=== PATIENT | male | born 1980 | race African-American/Black ===

== ENCOUNTER 2024-03-04 20:35 | Inpatient (IN) ==
--- NOTE | 2024-03-05 00:37 | Ultrasound Report ---
Exam(s): US SCROTAL EXAM: US Scrotum CLINICAL HISTORY: Reason for exam: swelling. TECHNIQUE: Real-time ultrasound of the scrotum with color Doppler and image documentation. COMPARISON: No relevant prior studies available. FINDINGS: Right testicle: Right testicle measures 3.1 x 5.4 x 2.8 cm with normal echotexture but diffuse hyperemia. No torsion. Left testicle: There is a heterogenous hypoechoic area in the previous location of the left testicle measuring 3.9 x 4.7 x 3.6 cm with no detectable Doppler blood flow. No torsion. Epididymides: Unremarkable. Scrotum: Unremarkable. No hernia or varicocele is seen. Soft tissues: There is diffuse skin thickening over the scrotum. No subcutaneous emphysema is identified. IMPRESSION: 1. Right testicle measures 3.1 x 5.4 x 2.8 cm with normal echotexture but mild diffuse hyperemia. Consider orchitis. 2. There is a heterogenous hypoechoic area in the previous location of the left testicle measuring 3.9 x 4.7 x 3.6 cm with no detectable Doppler blood flow. With a history of previous orchiectomy, consider abscess. 3. There is diffuse skin thickening over the scrotum. No subcutaneous emphysema is identified. Communications: Call Doctor Above results Electronically signed by: Presley Wood MD 03/05/24 00:36 AM
--- NOTE | 2024-03-05 01:21 | Emergency Department Note ---
History of Present Illness General Chief complaint: Testicular Pain Stated complaint: TESTICULAR PAIN Time Seen by Provider: 03/05/24 00:32 History of Present Illness This 43-year-old male prisoner whose had his left testicle removed 7 months ago secondary to torsion presents ER with increased scrotal pain and swelling for the past few days. Patient has some lower abdominal discomfort. Patient denies anal intercourse, penile pain, penile discharge, fever, chills, trauma to the area. Patient states he is in a monogamous relationship. Home Medications Medication Instructions Recorded Confirmed Type amlodipine 10 mg tablet 10 mg PO DAILY 03/05/24 03/05/24 History atorvastatin 20 mg PO DAILY 03/05/24 03/05/24 History ibuprofen 600 mg tablet 600 mg PO Q8H PRN Pain 03/05/24 03/05/24 History insulin glargine 100 unit/mL 25 unit subcut BID 03/05/24 03/05/24 History subcutaneous solution insulin regular human 100 unit/mL 1 sliding scale dose subcut 03/05/24 03/05/24 History injection solution (Novolin R USEASDIRECTD Regular U-100 Insulin) lamotrigine 100 mg tablet 100 mg PO BID 03/05/24 03/05/24 History simethicone 180 mg capsule 180 mg PO BID PRN bloating 03/05/24 03/05/24 History Past Med/Surg History Problem List (Updated 03/05/24 @ 05:11 by Roseanna Balderas PA-C) Scrotum, abscess (Acute) Social History Smoking Status: Never smoker Feels Safe at Home: Yes Review of Systems A total of 10 systems reviewed and were otherwise negative Physical Exam Vital Signs Vital Signs - 24 hr 03/04/24 20:45 03/05/24 00:28 03/05/24 00:37 Temperature 36.8 C Temperature Source Temporal Artery Scan Pulse Rate 99 H 91 H Pulse Rhythm Regular Regular Pulse Strength Normal Respiratory Rate 20 20 Respiratory Effort / Characteristics Non-Labored Spontaneous Respiratory Depth Normal Blood Pressure 204/103 H Blood Pressure Mean 136 Pulse Oximetry 97 98 Oxygen Delivery Method Room Air Room Air Sepsis Recent Fever Within 48 Hours No Sepsis New/Unexplained Change in Mental Status N/A Sepsis Action Taken by Nursing No Action Required 03/05/24 04:38 Temperature Temperature Source Pulse Rate 88 Pulse Rhythm Pulse Strength Respiratory Rate Respiratory Effort / Characteristics Respiratory Depth Blood Pressure Blood Pressure Mean Pulse Oximetry Oxygen Delivery Method Sepsis Recent Fever Within 48 Hours Sepsis New/Unexplained Change in Mental Status Sepsis Action Taken by Nursing VITALS: Vitals are noted on the nurse's note and reviewed by myself. Vital signs stable. 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 SKIN: Capillary reflex less than 2 seconds. HEENT: Normocephalic. PERRLA. EOMI. Nares patent. Mucous membranes moist. Neck is supple without nuchal rigidity. HEART: Regular rate and rhythm LUNGS: Clear to auscultation bilaterally without wheezes, rales or rhonchi. No retractions or accessory muscle use. ABDOMEN: Positive bowel sounds x 4. Normal tympanic percussion. Soft, tender to palpation lower abdomen without masses or organomegaly. Arias sign negative. No guarding or rebound tenderness. no CVA tenderness exam: Scrotum quite edematous and diffusely tender to palpation, no rashes MUSCULOSKELETAL: No gross musculoskeletal defects. NEURO: Patient was alert and oriented to person place and time. No focal neurological deficits. Course Administered Medications Discontinued Medications Doxycycline Hyclate (Doxycycline Hyclate 100 Mg Cap) 100 mg PO NOW STA Stop: 03/05/24 00:52 Last Admin: 03/05/24 01:51 Dose: 100 mg Documented By: ANGELES Ceftriaxone Sodium (Rocephin) 2,000 mg in 50 mls @ 100 mls/hr IV NOW STA Stop: 03/05/24 01:20 Last Infusion: 03/05/24 03:11 Dose: Infused Documented By: Admin: 03/05/24 01:47 Dose: 100 mls/hr Documented By: ANGELES Acetaminophen (Ofirmev) 1,000 mg in 100 mls @ 400 mls/hr IV NOW STA Stop: 03/05/24 03:12 Last Infusion: 03/05/24 04:07 Dose: Infused Documented By: Admin: 03/05/24 03:19 Dose: 400 mls/hr Documented By: WANG Sodium Chloride (Nss) 1,000 mls @ 999 mls/hr IV .Q1H1M ONE Stop: 03/05/24 03:58 Last Infusion: 03/05/24 04:23 Dose: Infused Documented By: JOSE ANGEL Admin: 03/05/24 03:18 Dose: 999 mls/hr Documented By: HAM Ioversol (Optiray 320 100ml) 94 ml IV ONCE ONE Stop: 03/05/24 02:24 Last Admin: 03/05/24 02:23 Dose: 94 ml Documented By: MONICA Medical Decision Making Medical Records Attestation: I reviewed the patient's medical records. Home Medications Current Medication List: was personally reviewed by ri Laboratory Data Attestation: I reviewed the patient's lab results. 03/05/24 01:04 03/05/24 01:04 Lab Results 03/04/24 03/05/24 Range/Units 20:49 01:04 WBC 8.27 (4.8-10.8) K/ul RBC 5.10 (4.70-6.10) M/uL Hgb 13.6 L (14.0-18.0) g/dl Hct 42.0 (42.0-52.0) % MCV 82.4 (80.0-100.0) fL MCH 26.7 (25.0-34.0) pg MCHC 32.4 (32.0-36.0) g/dL RDW Std Deviation 38.0 (36.4-46.3) fL RDW Coeff of Alexa 12.6 (11.5-14.5) % Plt Count 205 (130-400) K/uL MPV 11.2 (9.4-12.4) fL Immature Gran % (Auto) 0.1 % Neut % (Auto) 76.2 % Lymph % (Auto) 13.9 % Sac % (Auto) 8.7 % Eos % (Auto) 1.0 % Baso % (Auto) 0.1 % Neut # (Auto) 6.30 (1.40-6.50) K/uL Lymph # (Auto) 1.15 L (1.20-3.40) K/uL Sac # (Auto) 0.72 H (0.11-0.59) K/uL Eos # (Auto) 0.08 (0.00-0.50) K/uL Baso # (Auto) 0.01 (0.00-0.20) K/uL Immature Gran # (Auto) 0.01 (0.01-0.20) K/uL Sodium 137 (136-145) mmol/L Potassium 3.8 (3.5-5.1) mmol/L Chloride 99 (98-107) mmol/L Carbon Dioxide 30 (21-32) mmol/L Anion Gap 8 (3-11) BUN 19 (6-23) mg/dl Creatinine 1.39 (0.6-1.4) mg/dl Est Cr Clr Drug Dosing 97.2 ml/min Est GFR ( Amer) 70.4 ml/min Est GFR (Non-Af Amer) 60.8 ml/min BUN/Creatinine Ratio 13.7 (10-20) Glucose 248 H (70-99(Fasting)) mg/dl POC Glucose 364 H* (70-99) mg/dl Calcium 10.0 (8.6-10.3) mg/dl Total Bilirubin 0.4 (0.2-1.0) mg/dl AST 31 (13-39) U/L ALT 33 (7-52) U/L Alkaline Phosphatase 113 H (34-104) U/L Total Protein 7.7 (6.0-8.3) gm/dl Albumin 4.4 (3.4-5.0) gm/dl Globulin 3.3 (2.5-4.0) gm/dl Albumin/Globulin Ratio 1.3 (0.9-2) Lipase 73 (11-82) U/L Imaging Data Attestation: I personally reviewed and interpreted this imaging study as follows: Radiologist's Impression: Scrotum Ultrasound 03/04/24 20:50 CR Exam(s): US SCROTAL EXAM: US Scrotum CLINICAL HISTORY: Reason for exam: swelling. TECHNIQUE: Real-time ultrasound of the scrotum with color Doppler and image documentation. COMPARISON: No relevant prior studies available. FINDINGS: Right testicle: Right testicle measures 3.1 x 5.4 x 2.8 cm with normal echotexture but diffuse hyperemia. No torsion. Left testicle: There is a heterogenous hypoechoic area in the previous location of the left testicle measuring 3.9 x 4.7 x 3.6 cm with no detectable Doppler blood flow. No torsion. Epididymides: Unremarkable. Scrotum: Unremarkable. No hernia or varicocele is seen. Soft tissues: There is diffuse skin thickening over the scrotum. No subcutaneous emphysema is identified. IMPRESSION: 1. Right testicle measures 3.1 x 5.4 x 2.8 cm with normal echotexture but mild diffuse hyperemia. Consider orchitis. 2. There is a heterogenous hypoechoic area in the previous location of the left testicle measuring 3.9 x 4.7 x 3.6 cm with no detectable Doppler blood flow. With a history of previous orchiectomy, consider abscess. 3. There is diffuse skin thickening over the scrotum. No subcutaneous emphysema is identified. Communications: Call Doctor Above results Electronically signed by: Presley Wood MD 03/05/24 00:36 AM Abdomen/Pelvis CT 03/05/24 00:37 Exam(s): CT ABDOMEN + PELVIS With Contrast IV Amt: 94 ml opti 320 EXAM: CT Abdomen and Pelvis With Intravenous Contrast CLINICAL HISTORY: lower abd pain. TECHNIQUE: Axial computed tomography images of the abdomen and pelvis with intravenous contrast. CTDI is 28.14 mGy and DLP is 359.97 mGy-cm. Automated exposure control was utilized for the study. A dose lowering technique was utilized adhering to the principles of ALARA. CONTRAST: Patient received 94 ml opti 320 of IV contrast COMPARISON: Scrotal ultrasound 03/04/2024. FINDINGS: Lung bases: Unremarkable. No mass. No consolidation. ABDOMEN: Liver: Unremarkable. No mass. Gallbladder and bile ducts: Contracted. No calcified stones. No ductal dilation. Pancreas: Unremarkable. No mass. No ductal dilation. Spleen: Unremarkable. No splenomegaly. Adrenals: Unremarkable. No mass. Kidneys and ureters: No obstructive uropathy. No obstructing renal or ureteral calculi. No hydronephrosis or hydroureter. Stomach and bowel: Fat-containing periumbilical hernia. No obstruction or ileus. Moderate stool throughout the colon. No evidence for diverticulitis. PELVIS: Appendix: No findings to suggest acute appendicitis. Bladder: Mildly distended. No mass. Reproductive: Unremarkable prostate gland. Limited evaluation scrotum demonstrates extensive scrotal wall thickening, enhancement in the hypoenhancing left testes. ABDOMEN and PELVIS: Intraperitoneal space: No free air. No free fluid. Bones/joints: No acute fracture. Bilateral femoral head and neck screws. Soft tissues: Unremarkable. Vasculature: Atherosclerotic vascular calcifications. No abdominal aortic aneurysm. Lymph nodes: Unremarkable. No enlarged lymph nodes. IMPRESSION: Fat-containing periumbilical hernia. No bowel obstruction or ileus. Moderate stool throughout the colon. Limited evaluation of the scrotum straight scrotal wall thickening and hypoenhancing left testes consistent with torsion seen on scrotal ultrasound, see scrotal ultrasound report Electronically signed by: Edgar Horn M.D. 03/05/24 03:21 AM MDM Narrative Prior records/ancillary studies reviewed. Triage Nursing notes reviewed. Additional history obtained from nursing. The patient's history was concerning for testicular swelling. Differential diagnosis: Etiologies such as torsion, mass, infection, hernia, hydrocele, epididymitis, trauma, intra-abdominal process, as well as others were entertained. Physical examination: As above ER treatment provided: Rocephin, doxycycline, IV fluids On reassessment the patient felt better. Diagnostic interpretation by me: The labs Independently Interpreted by myself revealed no worrisome leukocytosis, hyperglycemia without DKA Imaging studies: Ultrasound was reviewed and read by radiology CT was reviewed and read by radiology Consultation: A consultation was placed with the urologist, Dr. Padron. The case was discussed and diagnostics were reviewed. He recommends antibiotics and CT scan Medicine is consulted and the case discussed. Patient was admitted to the medical service. This appears to be consistent with scrotal abnormality. Patient either has an abscess or hematoma. This was reviewed with urology and recommends CAT scan for possible hernia. No inguinal hernia. Patient was started on antibiotics. Medicine was consulted and case is discussed. Patient was mated to the medical service. By the evaluation outlined above emergent etiologies such as torsion, hernia, hydrocele, trauma, intra-abdominal process, as well as others were deemed relatively unlikely. The pt informed about the findings as listed above. All questions were answered and pleased with the treatment. The chart was completed utilizing [employer] Speech voice recognition software. Grammatical errors, random word insertions, pronoun errors, and incomplete sentences are an occassional consequence of this system due to software limitations, ambient noise, and hardware issues. Any formal questions or concerns about the content, text, or information contained within the body of this dictation should be directly addressed to the physician nurse practitioner physicians assistant for clarification. Impression & Plan Scrotum, abscess Discharge Plan Visit Data Chief Complaint: Testicular Pain Stated Complaint: TESTICULAR PAIN ED Provider: Caroline Shin ED Midlevel Provider: Roseanna Balderas Discharge Problem: Scrotum, abscess Patient Disposition: Admitted As Inpatient Condition: Good Forms Stand Alone Forms: My [facility] Prescriptions Prescriptions: No Action insulin glargine 100 unit/mL Solution 25 unit SUBCUT BID simethicone 180 mg Capsule 180 mg PO BID PRN (Reason: bloating) amlodipine 10 mg Tablet 10 mg PO DAILY Novolin R Regular U100 Insulin 100 unit/mL Solution 1 sliding scale dose SUBCUT USEASDIRECTD ibuprofen 600 mg Tablet 600 mg PO Q8H PRN (Reason: Pain) lamotrigine 100 mg Tablet 100 mg PO BID atorvastatin 20 mg 20 mg PO DAILY Referrals Referrals: Freddie BEST [Primary Care Provider] -
[2024-03-05 01:27] LABS: Basophils # (auto) 0.01 K/uL (0.00-0.20); Basophils % (auto) 0.1 %; Eosinophils # (auto) 0.08 K/uL (0.00-0.50); Hemoglobin 13.6 g/dl (14.0-18.0); Immature Granulocytes # (auto) 0.01 K/uL (0.01-0.20); Immature Granulocytes % (auto) 0.1 %; Lymphocytes # (auto) 1.15 K/uL (1.20-3.40); Lymphocytes % (auto) 13.9 %; Mean Corpuscular Hemoglobin 26.7 pg (25.0-34.0); Mean Corpuscular Hgb Conc 32.4 g/dL (32.0-36.0); Mean Corpuscular Volume 82.4 fL (80.0-100.0); Mean Platelet Volume 11.2 fL (9.4-12.4); Monocytes # (auto) 0.72 K/uL (0.11-0.59); Monocytes % (auto) 8.7 %; Neutrophils % (auto) 76.2 %; Platelet Count 205 K/uL (130-400); RDW Coefficient of Variation 12.6 % (11.5-14.5); White Blood Count 8.27 K/ul (4.8-10.8)
[2024-03-05 01:40] LABS: Albumin Globulin Ratio 1.3 (0.9-2); Albumin Level 4.4 gm/dl (3.4-5.0); BUN Creatinine Ratio 13.7 (10-20); Bilirubin,Total 0.4 mg/dl (0.2-1.0); Creatinine Clr Calc Pharmacy 97.2 ml/min; Est GFR (African American) 70.4 ml/min; Est GFR (Non-African American) 60.8 ml/min; Globulin 3.3 gm/dl (2.5-4.0); Potassium 3.8 mmol/L (3.5-5.1); Total Protein 7.7 gm/dl (6.0-8.3)
[2024-03-05] MEDS: cefTRIAXone SODIUM 2,000 MG/50 ML BAG IV STA (01:47)
[2024-03-05] MEDS: DOXYCYCLINE HYCLATE 100 MG CAP PO STA (01:51)
[2024-03-05] MEDS: OPTIRAY 320 100ml IV ONE (02:23)
[2024-03-05] MEDS: SODIUM CHLORIDE 0.9% 1,000 ML IV ONE (03:18)
[2024-03-05] MEDS: ACETAMINOPHEN 1,000 MG/100 ML VIAL IV STA (03:19)
--- NOTE | 2024-03-05 03:22 | CT Scan Report ---
Exam(s): CT ABDOMEN + PELVIS With Contrast IV Amt: 94 ml opti 320 EXAM: CT Abdomen and Pelvis With Intravenous Contrast CLINICAL HISTORY: lower abd pain. TECHNIQUE: Axial computed tomography images of the abdomen and pelvis with intravenous contrast. CTDI is 28.14 mGy and DLP is 359.97 mGy-cm. Automated exposure control was utilized for the study. A dose lowering technique was utilized adhering to the principles of ALARA. CONTRAST: Patient received 94 ml opti 320 of IV contrast COMPARISON: Scrotal ultrasound 03/04/2024. FINDINGS: Lung bases: Unremarkable. No mass. No consolidation. ABDOMEN: Liver: Unremarkable. No mass. Gallbladder and bile ducts: Contracted. No calcified stones. No ductal dilation. Pancreas: Unremarkable. No mass. No ductal dilation. Spleen: Unremarkable. No splenomegaly. Adrenals: Unremarkable. No mass. Kidneys and ureters: No obstructive uropathy. No obstructing renal or ureteral calculi. No hydronephrosis or hydroureter. Stomach and bowel: Fat-containing periumbilical hernia. No obstruction or ileus. Moderate stool throughout the colon. No evidence for diverticulitis. PELVIS: Appendix: No findings to suggest acute appendicitis. Bladder: Mildly distended. No mass. Reproductive: Unremarkable prostate gland. Limited evaluation scrotum demonstrates extensive scrotal wall thickening, enhancement in the hypoenhancing left testes. ABDOMEN and PELVIS: Intraperitoneal space: No free air. No free fluid. Bones/joints: No acute fracture. Bilateral femoral head and neck screws. Soft tissues: Unremarkable. Vasculature: Atherosclerotic vascular calcifications. No abdominal aortic aneurysm. Lymph nodes: Unremarkable. No enlarged lymph nodes. IMPRESSION: Fat-containing periumbilical hernia. No bowel obstruction or ileus. Moderate stool throughout the colon. Limited evaluation of the scrotum straight scrotal wall thickening and hypoenhancing left testes consistent with torsion seen on scrotal ultrasound, see scrotal ultrasound report Electronically signed by: Edgar Horn M.D. 03/05/24 03:21 AM
--- NOTE | 2024-03-05 05:26 | History & Physical Report ---
Date of Service March 05, 2024 Assessment & Plan (1) Scrotum, abscess: Plan: 43-year-old male with past medical history significant for diabetes, hypertension, hyperlipidemia, hydrocele,seizures, osteomyelitis per patient comes from group home because of the left scrotal pain started 2- 3 days ago. Patient says the pain is very severe. Micturating okay. Initially noticed some blood in the urine. Patient states about 7 months ago he had a left orchiectomy because of testicular torsion. Denies any fever. Has right lower abdominal pain. Constipated. Denies any blood in the stools. No chest pain or shortness of. No nausea. No headache. No runny nose or sore throat. No cough. . Currently hemodynamics are okay. Patient states has been in group home for last 7 months. No sexual activity since been in the group home. Scrotal pain History of left orchiectomy for testicular torsion Scrotum ultrasound possible right testicle orchitis. Possible left scrotal abscess Urology notified by ER N.p.o. IV fluids IV Dilaudid as needed IV Zosyn and Doxy Urology consult Hypertension Elevated Continue home amlodipine IV labetalol as needed Diabetes Will cut back on long-acting insulin to 12 units twice daily as patient currently n.p.o. Sliding scale Will follow blood sugars and HbA1c levels Hyperlipidemia On statin History of seizures On Lamictal DVT prophylaxis SCDs for now Disposition Med/telemetry Full code History of Present Illness Chief Complaint: Scrotal pain Primary Care Provider: NASIR Frazier 43-year-old male with past medical history significant for diabetes, hypertension, hyperlipidemia, hydrocele,seizures, osteomyelitis per patient comes from group home because of the left scrotal pain started 2- 3 days ago. Patient says the pain is very severe. Micturating okay. Initially noticed some blood in the urine. Patient states about 7 months ago he had a left orchiectomy because of testicular torsion. Denies any fever. Has right lower abdominal pain. Constipated. Denies any blood in the stools. No chest pain or shortness of. No nausea. No headache. No runny nose or sore throat. No cough. . Currently hemodynamics are okay. Patient states has been in group home for last 7 months. No sexual activity since been in the group home. Past medical history. As mentioned above Past surgical history. Left orchectomy. Bilateral foot foot surgery for osteomyelitis. Social social history. Used to smoke 6 to 7 cigarettes daily for 14 years and last smoking was 7 months ago. Used to drink alcohol heavily but last drink was 7 months ago. Patient used to smoked marijuana once in a while. Family history. Significant for diabetes, cancer, CHF Allergies Allergy/AdvReac Type Severity Reaction Status Date / Time No Known Allergies Allergy Verified 03/05/24 08:51 Home Medications Medication Instructions Recorded Confirmed Type amlodipine 10 mg tablet 10 mg PO DAILY 03/05/24 03/05/24 History atorvastatin 20 mg PO DAILY 03/05/24 03/05/24 History ibuprofen 600 mg tablet 600 mg PO Q8H PRN Pain 03/05/24 03/05/24 History insulin glargine 100 unit/mL 25 unit subcut BID 03/05/24 03/05/24 History subcutaneous solution insulin regular human 100 unit/mL 1 sliding scale dose subcut 03/05/24 03/05/24 History injection solution (Novolin R USEASDIRECTD Regular U-100 Insulin) lamotrigine 100 mg tablet 100 mg PO BID 03/05/24 03/05/24 History simethicone 180 mg capsule 180 mg PO BID PRN bloating 03/05/24 03/05/24 History Past Med/Surg History Problem List (Updated 03/05/24 @ 05:11 by Roseanna Balderas PA-C) Scrotum, abscess (Acute) Social History Smoking Status: Never smoker Feels Safe at Home: Yes Review of Systems Review of Systems: All systems reviewed & are unremarkable except as noted in HPI & below Physical Exam Physical Exam: General- Not in acute distress Head- atraumatic Eyes- PERRL. ENT- oropharynx clear Neck- supple, no JVD. Lungs- clear to auscultation no wheezing or crackles Heart- regular rate and rhythm; no murmur, no gallop. Abdomen- normal bowel sounds, soft, nontender, no distension Extremities- no pretibial edema, no erythema seen Neuro- alert, oriented PERRL, no facial palsy; no dysarthria; Scrotal swelling with mild erythema seen. Results & Data Results & Data Vital Signs (Past 12 Hours) Vital Signs Temp Pulse Resp BP Pulse Ox O2 Del Method 03/05/24 04:38 88 03/05/24 00:37 20 98 Room Air 03/05/24 00:28 91 H 03/04/24 20:45 36.8 C 99 H 20 204/103 H 97 Room Air Diagnostic Findings Laboratory Results WBC 8.27 K/ul (4.8-10.8) 03/05/24 01:04 RBC 5.10 M/uL (4.70-6.10) 03/05/24 01:04 Hgb 13.6 g/dl (14.0-18.0) L 03/05/24 01:04 Hct 42.0 % (42.0-52.0) 03/05/24 01:04 MCV 82.4 fL (80.0-100.0) 03/05/24 01:04 MCH 26.7 pg (25.0-34.0) 03/05/24 01:04 MCHC 32.4 g/dL (32.0-36.0) 03/05/24 01:04 RDW Std Deviation 38.0 fL (36.4-46.3) 03/05/24 01:04 RDW Coeff of Alexa 12.6 % (11.5-14.5) 03/05/24 01:04 Plt Count 205 K/uL (130-400) 03/05/24 01:04 MPV 11.2 fL (9.4-12.4) 03/05/24 01:04 Immature Gran % (Auto) 0.1 % 03/05/24 01:04 Neut % (Auto) 76.2 % 03/05/24 01:04 Lymph % (Auto) 13.9 % 03/05/24 01:04 [place] % (Auto) 8.7 % 03/05/24 01:04 Eos % (Auto) 1.0 % 03/05/24 01:04 Baso % (Auto) 0.1 % 03/05/24 01:04 Neut # (Auto) 6.30 K/uL (1.40-6.50) 03/05/24 01:04 Lymph # (Auto) 1.15 K/uL (1.20-3.40) L 03/05/24 01:04 [place] # (Auto) 0.72 K/uL (0.11-0.59) H 03/05/24 01:04 Eos # (Auto) 0.08 K/uL (0.00-0.50) 03/05/24 01:04 Baso # (Auto) 0.01 K/uL (0.00-0.20) 03/05/24 01:04 Immature Gran # (Auto) 0.01 K/uL (0.01-0.20) 03/05/24 01:04 Sodium 137 mmol/L (136-145) 03/05/24 01:04 Potassium 3.8 mmol/L (3.5-5.1) 03/05/24 01:04 Chloride 99 mmol/L (98-107) 03/05/24 01:04 Carbon Dioxide 30 mmol/L (21-32) 03/05/24 01:04 Anion Gap 8 (3-11) 03/05/24 01:04 BUN 19 mg/dl (6-23) 03/05/24 01:04 Creatinine 1.39 mg/dl (0.6-1.4) 03/05/24 01:04 Est Cr Clr Drug Dosing 97.2 ml/min 03/05/24 01:04 Est GFR ( Amer) 70.4 ml/min 03/05/24 01:04 Est GFR (Non-Af Amer) 60.8 ml/min 03/05/24 01:04 BUN/Creatinine Ratio 13.7 (10-20) 03/05/24 01:04 Glucose 248 mg/dl (70-99(Fasting)) H 03/05/24 01:04 POC Glucose 364 mg/dl (70-99) H* 03/04/24 20:49 Calcium 10.0 mg/dl (8.6-10.3) 03/05/24 01:04 Total Bilirubin 0.4 mg/dl (0.2-1.0) 03/05/24 01:04 AST 31 U/L (13-39) 03/05/24 01:04 ALT 33 U/L (7-52) 03/05/24 01:04 Alkaline Phosphatase 113 U/L (34-104) H 03/05/24 01:04 Total Protein 7.7 gm/dl (6.0-8.3) 03/05/24 01:04 Albumin 4.4 gm/dl (3.4-5.0) 03/05/24 01:04 Globulin 3.3 gm/dl (2.5-4.0) 03/05/24 01:04 Albumin/Globulin Ratio 1.3 (0.9-2) 03/05/24 01:04 Lipase 73 U/L (11-82) 03/05/24 01:04 Impressions Scrotum Ultrasound 03/04/24 20:50 CR Exam(s): US SCROTAL EXAM: US Scrotum CLINICAL HISTORY: Reason for exam: swelling. TECHNIQUE: Real-time ultrasound of the scrotum with color Doppler and image documentation. COMPARISON: No relevant prior studies available. FINDINGS: Right testicle: Right testicle measures 3.1 x 5.4 x 2.8 cm with normal echotexture but diffuse hyperemia. No torsion. Left testicle: There is a heterogenous hypoechoic area in the previous location of the left testicle measuring 3.9 x 4.7 x 3.6 cm with no detectable Doppler blood flow. No torsion. Epididymides: Unremarkable. Scrotum: Unremarkable. No hernia or varicocele is seen. Soft tissues: There is diffuse skin thickening over the scrotum. No subcutaneous emphysema is identified. IMPRESSION: 1. Right testicle measures 3.1 x 5.4 x 2.8 cm with normal echotexture but mild diffuse hyperemia. Consider orchitis. 2. There is a heterogenous hypoechoic area in the previous location of the left testicle measuring 3.9 x 4.7 x 3.6 cm with no detectable Doppler blood flow. With a history of previous orchiectomy, consider abscess. 3. There is diffuse skin thickening over the scrotum. No subcutaneous emphysema is identified. Communications: Call Doctor Above results Electronically signed by: Presley Wood MD 03/05/24 00:36 AM Abdomen/Pelvis CT 03/05/24 00:37 Exam(s): CT ABDOMEN + PELVIS With Contrast IV Amt: 94 ml opti 320 EXAM: CT Abdomen and Pelvis With Intravenous Contrast CLINICAL HISTORY: lower abd pain. TECHNIQUE: Axial computed tomography images of the abdomen and pelvis with intravenous contrast. CTDI is 28.14 mGy and DLP is 359.97 mGy-cm. Automated exposure control was utilized for the study. A dose lowering technique was utilized adhering to the principles of ALARA. CONTRAST: Patient received 94 ml opti 320 of IV contrast COMPARISON: Scrotal ultrasound 03/04/2024. FINDINGS: Lung bases: Unremarkable. No mass. No consolidation. ABDOMEN: Liver: Unremarkable. No mass. Gallbladder and bile ducts: Contracted. No calcified stones. No ductal dilation. Pancreas: Unremarkable. No mass. No ductal dilation. Spleen: Unremarkable. No splenomegaly. Adrenals: Unremarkable. No mass. Kidneys and ureters: No obstructive uropathy. No obstructing renal or ureteral calculi. No hydronephrosis or hydroureter. Stomach and bowel: Fat-containing periumbilical hernia. No obstruction or ileus. Moderate stool throughout the colon. No evidence for diverticulitis. PELVIS: Appendix: No findings to suggest acute appendicitis. Bladder: Mildly distended. No mass. Reproductive: Unremarkable prostate gland. Limited evaluation scrotum demonstrates extensive scrotal wall thickening, enhancement in the hypoenhancing left testes. ABDOMEN and PELVIS: Intraperitoneal space: No free air. No free fluid. Bones/joints: No acute fracture. Bilateral femoral head and neck screws. Soft tissues: Unremarkable. Vasculature: Atherosclerotic vascular calcifications. No abdominal aortic aneurysm. Lymph nodes: Unremarkable. No enlarged lymph nodes. IMPRESSION: Fat-containing periumbilical hernia. No bowel obstruction or ileus. Moderate stool throughout the colon. Limited evaluation of the scrotum straight scrotal wall thickening and hypoenhancing left testes consistent with torsion seen on scrotal ultrasound, see scrotal ultrasound report Electronically signed by: Edgar Horn M.D. 03/05/24 03:21 AM Code Status & VTE Plan VTE Prophylaxis Plan VTE Prophylaxis will be ordered: Yes
[2024-03-05] MEDS ORDERED: LABETALOL HCL IV 5 MG/ML 20ML IV PRN (05:58)
[2024-03-05] MEDS ORDERED: NITROGLYCERIN SL 0.4 MG/TAB TAB SL PRN (05:58)
[2024-03-05] MEDS ORDERED: DEXTROSE 50% 50 ML SYRINGE IV PRN (05:58)
[2024-03-05] MEDS ORDERED: POLYETHYLENE (MIRALAX) 17 GM PACK PO PRN (05:58)
[2024-03-05] MEDS ORDERED: GLUCOSE 40% GEL 15 GM TUBE PO PRN (05:58)
[2024-03-05] MEDS ORDERED: GLUCOSE 10 TAB/TUBE PO PRN (05:58)
[2024-03-05] MEDS ORDERED: GLUCAGON FOR INJ 1 MG VIAL SQ PRN (05:58)
[2024-03-05] MEDS ORDERED: CARBOHYDRATES FOR HYPOGLYCEMIA PO PRN (05:58)
--- OUTSIDE RECORDS SUMMARY | 2024-03-05 05:59 | External Medical Summary | Summary of Care ---
Author Name Unknown Organization [facility] Address [address] [place] [address] Phone [phone] Care Team Providers Care Motor Vehicle Inspector Name Role Phone Junior Lindsay MD Primary Care Provider [phone]- [phone] Encounter Details Date Type Department Care Team (Latest Contact Info) Description 07/27/2023 7:55 PM EST - 07/27/2023 11:59 PM EST Hospital Encounter Radiology Film File [address] [place] [address] Discharge Disposition: Home - Self Care Allergies No known active allergiesdocumented as of this encounter (statuses as of 12/24/2023) Medications Medication Sig Dispensed Refills Start Date End Date Status HUMALOG KWIKPEN 100 UNIT/ML SOPN inject 10 units with LUNCH AND SUPPER - MAY USE 10 UNITS AT BREAK... (REFER TO PRESCRIPTION NOTES). 1 Pre-filled Pen Syringe Dosing Unit 2 08/31/2017 Active insulin glargine (LANTUS SOLOSTAR) 100 UNIT/ML SOPNIndications:T ype 2 diabetes mellitus with hemoglobin A1c goal of less than 7.0% ([facility]) Inject 30 units once daily at night 5 Pre-filled Pen Syringe Dosing Unit 2 08/31/2017 Active Insulin Pen Needle 32G X 4 MM Use with insulin pens up to 5 times a day if needed 150 Each 5 08/31/2017 Active naproxen (NAPROSYN) 375 MG TabletIndications :Acute pain of right knee Take 1 tablet by mouth twice a day with food as needed for pain. Do not take ibuprofen concurrently. 60 Tab 5 08/31/2017 Active Blood Glucose Monitoring Suppl (ACCU-CHEK GUIDE) w/Device KIT Use to check blood sugars up to 4 times a day or as directed. 1 Kit 1 09/01/2017 Active Glucose Blood (ACCU-CHEK GUIDE) STRP Use to check blood sugars up to 4 times a day or as directed. 100 Strip 11 09/01/2017 Active Lancets MISC For use with Accu-Chek Guide glucometer. Use to check blood sugars up to 4 times a day or as directed. 100 Each 11 09/01/2017 Active Continuation of patient use of medical marijuana is approved Formulation: Dispensary Name: Dispensary Phone Number: Active FreeStyle Sherley 14 Day Sensor 06/24/2021 Active lamoTRIgine 100 MG Oral Tablet (LaMICtal) Take 1 Tablet by mouth in the morning and 1 Tablet before bedtime. 09/10/2021 Active Sildenafil Citrate 50 MG Oral Tablet Take 1 to 2 tablets as discussed daily as needed 08/08/2021 Active Lisinopril 2.5 MG Oral Tablet (Prinivil) Take 1 Tablet by mouth in the morning. Active Atorvastatin Calcium 20 MG Oral Tablet (Lipitor) Take 1 Tablet by mouth in the morning. 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 Patient did sign medication use agreement same day as tox screen given. 07/27/14: Urine drug screen with THC positive. Breech of med usage agreement. Do not give narcotics 06/04/2012 Overview: Failed urine drug screen 02/04/2012 - positive for Cannabinoids. Does have medication use agreement that is signed and scanned in chart 02/04/12, which was initiated same day as tox screen done. 07/27/14: Urine drug screen with THC positive. Second Breech of med use agreement. MEDICATION USE AGREEMENT 02/04/2012 Overview: FYI: At appointment 02/04/12 - patient seen for sinus issues but also wanted refill of vicodin. Had been out for 3 days. Was prescribed #40 Vicodin 01/05/12 to take 1 or 2 per day. Tox screen without hydrocodone on 02/04/12 but positive cannabinoids. Dyslipidemia, goal LDL below 100 07/25/2011 Dermatophytosis of nail 05/20/2011 Diabetic polyneuropathy 01/21/2011 Overview: ICD-10 update of inactive term Type 2 diabetes mellitus wit h hemoglobin A1c goal of less than 7.0% 01/08/2011 Overview: ICD-10 update of inactive term Abdominal pain 01/08/2011 Umbilical hernia 01/08/2011 Epileptic seizure 01/08/2011 SLIPPED [id number] >> Bilat, post surg 01/08/2011 documented as of this encounter (statuses as of 12/24/2023) Immunizations Name Administration Dates Next Due Hepatitis B, 20+ yrs 04/11/2014,11/08/2013,10/04 Pneumococcal Polysaccharide PPV23 (Pneumovax) 03/21/2011 Seasonal Influenza, Split, I IV3, With Preserve, Inj 07/15/2012,03/21/2011 TDAP, Age 7 and older, IM (Adacel) 03/21/2011 documented as of this encounter Social History Tobacco Use Types Packs/Day Years Used Date Smoking Tobacco: Every Day Cigarettes 0.3 10 Smokeless Tobacco: Never Comments:2-3 cigs per week. Alcohol Use Standard Drinks/Week Comments No 0 (1 standard drink = 0.6 oz pur e alcohol) social Utilities Answer Date Recorded Do you have trouble paying y our heating, water, or electric bill? (Adult - for ages 18 years and over) Not on file 12/08/2023 Is your family able to pay t he heat, water, or electric bill? (Household - for ages 0-17 years) Not on file 12/08/2023 Does your family have access to good internet? (Household - for ages 0-17 years) Not on file 12/08/2023 Social Connections Answer Date Recorded How often do you feel lonely or isolated from those around you? (Adult - for ages 18 years and over) Not on file 12/08/2023 Sex and Gender Information Value Date Recorded Sex Assigned at Not on file Gender Identity Not on file Sexual Orientation Not on file Job Start Date Occupation Industry Not on file Not on file Not on file documented as of this encounter Plan of Treatment Health Maintenance Due Date Last Done Comments DISCUSS TOBACCO CESSATION (REFER TO SMARTSET #9722) 1978 Hepatitis C Screening 1996 Pneumococcal Vaccine: Pediatrics (0 to 5 Years) and At-Risk Patients (6 to 64 Years) (2 of 2 - PCV) 03/21/2012 03/21/2011 Diabetic Foot Exam 10/04/2014 10/04/2013, 0 08/19/2012, 11/05/2011, Additional history exists Albumin/Creatinine Ratio 08/05/2017 08/05/2016, 12/20 Depression Screening 02/26/2018 02/26/2017 DTaP,Tdap,and Td Vaccines (2 - Td or Tdap) 03/21/2021 03/21/2011 COVID-19 Vaccine ( - season) 2023 Diabetic Eye Exam 09/16/2023 09/15/2022, , 10/11/2013, Additional history exists Cologuard 10/15/2023 Colonoscopy 10/15/2023 Colorectal Cancer Screening 10/15/2023 Fecal Occult Blood Test 10/15/2023 Sigmoidoscopy 10/15/2023 HbA1c 11/13/2023 05/15/2023, 06/09/2022, 06/26/2022, Additional history exists Influenza Vaccine (FLU shot) (#1) 2024 07/15/2012, 03/21/2011 GFR 08/31/2024 09/01/2023, 07/23, 08/02/2023, Additional history exists Lipid Panel 08/31/2028 09/01/2023, 04/22, 07/28/2016, Additional history exists Hepatitis B Vaccine Completed 04/11/2014, 11/08/2013, 10/04/2013 HPV (Gardasil) Vaccine Aged Out No lo nger eligible based on patient's age to complete this topic MENINGOCOCCAL (MENACTRA/MENVEO) Aged Out No longer eligible based on patient's age to complete this topic documented as of this encounter Medical Devices Not on filedocumented as of this encounter Procedures Procedure Name Priority Date/Time Associated Diagnosis Comments RADIOLOGY EXAM - US (IMAGES ONLY, NO REPORT) Routine 07/27/2023 7:55 PM EST documented in this encounter Results * RADIOLOGY EXAM - US (IMAGES ONLY, NO REPORT) (07/27/2023 7:55 PM EST) 07/27/2023 7:51 PM EST Narrative Scheduling, Silent - 12/23/2023 11:09 AM EDT This is an imaging study not interpreted or resulted by a [facility] or [employer] contracted radiologist. Yannick Nash MD RAD ULTRASOUND documented in this encounter Care Teams Motor Vehicle Inspector Relationship Specialty Start Date End Date Junior Lindsay MD [address] [place] [address] PCP - General Family Medicine 02/14/21 documented as of this encounter
--- OUTSIDE RECORDS SUMMARY | 2024-03-05 05:59 | External Medical Summary | Summary of Care ---
Author Name Unknown Organization [facility] Address [address] [place] [address] Phone [phone] Care Team Providers Care Superintendent Circus Name Role Phone Junior Lindsay MD Primary Care Provider [phone]- [phone] Encounter Details Date Type Department Care Team (Latest Contact Info) Description 07/31/2023 8:45 PM EST - 07/31/2023 11:59 PM EST Hospital Encounter Radiology Film File [address] [place], [place] [id number] Discharge Disposition: Home - Self Care Allergies [...] hemoglobin A1c goal of less than 7.0% ([facility]) Inject 30 units once daily at [...] Umbilical hernia 01/08/2011 Epileptic seizure 01/08/2011 SLIPPED [id number] >> Bilat, post surg 01/08/2011 documented as [...] Comments DISCUSS TOBACCO CESSATION (REFER TO SMARTSET #3925) 1978 Hepatitis C Screening 1996 Pneumococcal Vaccine: [...] - US (IMAGES ONLY, NO REPORT) Routine 07/31/2023 8:45 PM EST documented in this encounter Results * RADIOLOGY EXAM - US (IMAGES ONLY, NO REPORT) (07/31/2023 8:45 PM EST) 07/31/2023 8:41 PM EST Narrative Scheduling, Silent - 12/23/2023 11:13 AM EDT This is an imaging study not interpreted or resulted by a [facility] or [employer] contracted radiologist. Yannick Nash MD RAD ULTRASOUND documented in this encounter Care Teams Superintendent Circus Relationship Specialty Start Date End Date Junior Lindsay MD [address] [place] [address] PCP - General Family Medicine 02/14/21 documented as of this encounter
--- OUTSIDE RECORDS SUMMARY | 2024-03-05 05:59 | External Medical Summary | Summary of Care ---
Author Name Unknown Organization [facility] Address [address] [place] [address] Phone [phone] Care Team Providers Care Tube Room Cashier Name Role Phone Junior Lindsay MD Primary Care Provider [phone] Encounter Details Date Type Department Care Team (Late st Contact Info) Description 07/31/2023 Orders Only Unspecified Department Yannick Nash MD [address] [place] [phone] Allergies No known active allergiesdocumented as of this encounter (statuses as of 12/23/2023) Medications Medication Sig Dispensed Refills Start Date End Date Status HUMALOG KWIKPEN 100 UNIT/ML SOPN inject 10 units with LUNCH AND SUPPER - MAY USE 10 UNITS AT BREAK... (REFER TO PRESCRIPTION NOTES). 1 Pre-filled Pen Syringe Dosing Unit 2 08/31/2017 Active insulin glargine (LANTUS SOLOSTAR) 100 UNIT/ML SOPNIndications:T ype 2 diabetes mellitus with hemoglobin A1c goal of less than 7.0% ([facility]) Inject 30 units once daily at night [...] as of this encounter (statuses as of 12/23/2023) Active Problems Problem Noted Date Diagnosed Date [...] Umbilical hernia 01/08/2011 Epileptic seizure 01/08/2011 SLIPPED [id number] >> Bilat, post surg 01/08/2011 documented as of this encounter (statuses as of 12/23/2023) Immunizations Name Administration Dates Next Due Hepatitis [...] Comments DISCUSS TOBACCO CESSATION (REFER TO SMARTSET #1274) 1978 Hepatitis C Screening 1996 Pneumococcal Vaccine: Pediatrics (0 to 5 Years) and At-Risk Patients (6 to 64 Years) (2 of 2 - PCV) 03/21/2012 03/21/2011 Diabetic Foot Exam 10/04/2014 10/04/2013, 0 08/19/2012, 11/05/2011, Additional history exists Albumin/Creatinine Ratio 08/05/2017 08/05/2016, 12/20 Depression Screening 02/26/2018 02/26/2017 DTaP,Tdap,and Td Vaccines (2 - Td or Tdap) 03/21/2021 03/21/2011 COVID-19 Vaccine ( - season) 2023 HbA1c 05/25/2023 05/15/2023, 06/0 09/2022, 06/26/2022, Additional history exists Diabetic Eye Exam 09/16/2023 09/15/2022, , 10/11/2013, Additional history exists Cologuard 10/15/2023 Colonoscopy 10/15/2023 Colorectal Cancer Screening 10/15/2023 Fecal Occult Blood Test 10/15/2023 Sigmoidoscopy 10/15/2023 GFR 12/14/2023 09/01/2023, 07/23, 08/02/2023, Additional history exists Influenza Vaccine (FLU shot) (Season Ended) 2024 07/15/2012, 03/21/2011 Lipid Panel 05/03/2026 09/01/2023, 04/22, 07/28/2016, Additional history exists Hepatitis [...] interpreted or resulted by a [facility] or [employer] contracted radiologist. Yannick Nash MD RAD ULTRASOUND documented in this encounter Care Teams Tube Room Cashier Relationship Specialty Start Date End Date Junior Lindsay MD [address] [place] [address] PCP - General Family Medicine 02/14/21 documented as of this encounter
--- OUTSIDE RECORDS SUMMARY | 2024-03-05 05:59 | External Medical Summary | Summary of Care ---
Author Name Unknown Organization [facility] Address [address] [place] [address] Phone [phone] Care Team Providers Care Head Filter Press Tender Name Role Phone Junior Lindsay MD Primary Care Provider [phone] Encounter Details Date Type Department Care Team (Late st Contact Info) Description 07/27/2023 Orders Only Unspecified Department Yannick Nash MD [address] [place] [phone] Allergies No known active allergiesdocumented as of [...] A1c goal of less than 7.0% ([facility]) Inject 30 units once daily at [...] Umbilical hernia 01/08/2011 Epileptic seizure 01/08/2011 SLIPPED [id number] >> Bilat, post surg 01/08/2011 documented as [...] Comments DISCUSS TOBACCO CESSATION (REFER TO SMARTSET #2977) 1978 Hepatitis C Screening 1996 Pneumococcal Vaccine: [...] Date/Time Associated Diagnosis Comments RADIOLOGY EXAM - CT (IMAGES ONLY, NO REPORT) Routine 07/27/2023 6:15 PM EST documented in this encounter Results * RADIOLOGY EXAM - CT (IMAGES ONLY, NO REPORT) (07/27/2023 6:15 PM EST) 07/27/2023 6:11 PM EST Narrative Scheduling, Silent - 12/23/2023 11:11 AM EDT This is an imaging study not interpreted or resulted by a [facility] or [employer] contracted radiologist. Yannick Nash MD RAD CT documented in this encounter Care Teams Head Filter Press Tender Relationship Specialty Start Date End Date Junior Lindsay MD [address] [place] [address] PCP - General Family Medicine 02/14/21 documented as of this encounter
--- OUTSIDE RECORDS SUMMARY | 2024-03-05 05:59 | External Medical Summary | Summary of Care ---
Author Name Unknown Organization [facility] Address [address] [place] [address] Phone [phone] Care Team Providers Care Anesthesiologist/Physician Name Role Phone Junior Lindsay MD Primary Care Provider [phone] Encounter Details Date Type Department Care Team (Late st Contact Info) Description 07/27/2023 Orders Only Unspecified Department Yannick Nash MD [address] [place] [phone] Allergies No known active allergiesdocumented as of [...] hemoglobin A1c goal of less than 7.0% ([facility]) Inject 30 units once daily at night [...] Umbilical hernia 01/08/2011 Epileptic seizure 01/08/2011 SLIPPED [id number] >> Bilat, post surg 01/08/2011 documented as [...] Comments DISCUSS TOBACCO CESSATION (REFER TO SMARTSET #0898) 1978 Hepatitis C Screening 1996 Pneumococcal Vaccine: [...] interpreted or resulted by a [facility] or [employer] contracted radiologist. Yannick Nash MD RAD ULTRASOUND documented in this encounter Care Teams Anesthesiologist/Physician Relationship Specialty Start Date End Date Junior Lindsay MD [address] [place] [address] PCP - General Family Medicine 02/14/21 documented as of this encounter
--- OUTSIDE RECORDS SUMMARY | 2024-03-05 05:59 | External Medical Summary | Summary of Care ---
Author Name Unknown Organization [facility] Address [address] [place] [address] Phone [phone] Care Team Providers Care Sales Professional Bilingual Name Role Phone Junior Lindsay MD Primary Care Provider [phone] Encounter Details Date Type Department Care Team (Latest Contact Info) Description 07/27/2023 6:15 PM EST - 07/27/2023 7:54 PM EST Hospital Encounter Radiology Film File [address] [place] [address] Discharge Disposition: Home - Self [...] A1c goal of less than 7.0% ([facility]) Inject 30 units once daily at night [...] Umbilical hernia 01/08/2011 Epileptic seizure 01/08/2011 SLIPPED [id number] >> Bilat, post surg 01/08/2011 documented as [...] Comments DISCUSS TOBACCO CESSATION (REFER TO SMARTSET #0498) 1978 Hepatitis C Screening 1996 Pneumococcal Vaccine: [...] interpreted or resulted by a [facility] or [employer] contracted radiologist. Yannick Nash MD RAD CT documented in this encounter Care Teams Sales Professional Bilingual Relationship Specialty Start Date End Date Junior Lindsay MD [address] [place] [address] PCP - General Family Medicine 02/14/21 documented as of this encounter
[2024-03-05 06:52] LABS: Basophils # (auto) 0.01 K/uL (0.00-0.20); Basophils % (auto) 0.1 %; Eosinophils % (auto) 1.3 %; Hematocrit (blood only) 36.8 % (42.0-52.0); Hemoglobin 12.2 g/dl (14.0-18.0); Immature Granulocytes # (auto) 0.03 K/uL (0.01-0.20); Immature Granulocytes % (auto) 0.4 %; Lymphocytes # (auto) 1.24 K/uL (1.20-3.40); Lymphocytes % (auto) 16.7 %; Mean Corpuscular Hemoglobin 26.9 pg (25.0-34.0); Mean Corpuscular Hgb Conc 33.2 g/dL (32.0-36.0); Mean Corpuscular Volume 81.1 fL (80.0-100.0); Mean Platelet Volume 11.6 fL (9.4-12.4); Monocytes # (auto) 0.67 K/uL (0.11-0.59); Neutrophils # (auto) 5.36 K/uL (1.40-6.50); Neutrophils % (auto) 72.5 %; Platelet Count 193 K/uL (130-400); RDW Coefficient of Variation 12.6 % (11.5-14.5); RDW Standard Deviation 37.2 fL (36.4-46.3); Red Blood Count 4.54 M/uL (4.70-6.10); White Blood Count 7.41 K/ul (4.8-10.8)
[2024-03-05 07:41] LABS: BUN Creatinine Ratio 16.2 (10-20); Calcium 9.1 mg/dl (8.6-10.3); Creatinine Clr Calc Pharmacy 121.8 ml/min; Est GFR (African American) 92.5 ml/min; Est GFR (Non-African American) 79.8 ml/min; Estimated Average Glucose 252 mg/dl; Hemoglobin A1C 10.4 % (4.5-5.6); Magnesium 1.9 mg/dl (1.7-2.4); Potassium 3.9 mmol/L (3.5-5.1)
[2024-03-05] MEDS: Patient's ALLERGY Info needs ENTERED SCH (08:52)
[2024-03-05] MEDS: SODIUM CHLORIDE 0.9% 1,000 ML IV SCH (08:52)
[2024-03-05] MEDS ORDERED: SIMETHICONE 80 MG CHEW PO PRN (09:10)
[2024-03-05] MEDS: lamoTRIgine 100 MG TAB PO SCH (09:53)
[2024-03-05] MEDS: amLODIPine BESYLATE 5 MG TAB PO SCH (09:53)
[2024-03-05] MEDS: ATORVASTATIN 20 MG TAB PO SCH (09:53)
[2024-03-05] MEDS: INSULIN HUMAN REGULAR PER UNIT 4 UNITS in SYRINGE 3.96 ML IV STA (09:54)
[2024-03-05] MEDS: LANTUS PER UNIT CHARGE SQ SCH ×2 (09:55→20:57)
[2024-03-05] MEDS: INSULIN ASPART PER UNIT CHARGE SC SCH (09:55)
[2024-03-05] MEDS: 4.5GM X1 IV ONE (09:55)
[2024-03-05] MEDS: ACETAMINOPHEN 325 MG TAB PO PRN (09:57)
[2024-03-05] MEDS: DOXYCYCLINE HYCLATE 100 MG in DEXTROSE 5% MINI-B 100 ML IV SCH (12:11)
--- NOTE | 2024-03-05 12:14 | Urology Consultation ---
Date of Consultation March 05, 2024 Assessment & Plan (1) Scrotal hematoma: (2) Scrotal edema: (3) History of orchiectomy: (4) History of torsion of testis: (5) Obesity: Plan Patient presented with significant scrotal swelling. Patient has complicated history with history of testicular torsion requiring orchiectomy. Patient developed a large hematoma after the procedure requiring drainage and more acute management. Patient is currently a resident at the correctional [facility]. He had developed sudden onset of significant swelling pain and discomfort and was very concerned about developing a new scrotal hematoma. Patient had undergone imaging with concern for possible developing abscess. Was admitted to the hospitalist team. The ER team had reached out last evening for review of the imaging findings and to discuss different options. Based on imaging it did not appear that an abscess that formed. Patient had a mild residual hematoma in the hemiscrotum however was found to have severe scrotal edema. Patient independently assessed, examined, interviewed, and evaluated. Agree with note as above. Patient's vitals and labs were all reviewed. Pertinent values in the HPI and plan section. Imaging was reviewed interpreted by myself. On assessment of imaging patient has severe scrotal edema with moderate residual hematoma in the hemiscrotum. No signs of abscess formation gas subcutaneous fluid pockets or collections or other concern for a drainable abscess. Read did state possible portion of the testis however likely was visualizing the residual hematoma being mistaken for a nonviable or necrotic testicle. Otherwise agree with read. Vitals were reviewed. Hemoglobin was 12.2. White count 7.41. Creatinine 1.11. Other labs and vitals were reviewed and in the HPI or plan section. Blood pressure was 145/96 pulse 83 respirations 20 temperature 36.8 and oxygen saturation 100% on room air. Discussed findings extensively with patient and correctional guards. Reviewed with nurse practitioner with ER last evening as well as consulting physicians/team. Patient's complicated medical and surgical history was reviewed and summarized above. Patient's surgical, medical, social, and family history were all reviewed with pertinent values as above. Discussed patient's current diagnosis as well as concerns and issues. Reviewed different options moving forward. Discussed potential risks and benefits as well as possible options and concerns. Reviewed potential surgical options and interventions. Discussed potential issues and concerns related to intervention. Risk and benefits were discussed extensively with patient and any available family. Discussed potential risks related to anesthesia. Discussed risks of bleeding infection and injury. No sign of abscess formation within the hemiscrotum findings are consistent with persistent hematoma in the hemiscrotum with severe scrotal edema. Reviewed extensively plans and options for management of scrotal edema including conservative measures ice elevation heat in the groin region and rest. Discussed possible development of abscess. If any fluctuance fevers findings of concerning issues such as fluid collections that appear to be turning into an abscess do develop would need to consider possible surgical exploration drainage and possible drain placement however at this time appears to be largely scrotal edema that is the main source of the significant scrotal swelling. Patient will likely need medications for pain control. Would recommend continuing antibiotics with the persistent hematoma to avoid development of infected hematoma/abscess. Long conversation of conservative management. Discussed scrotal support when ambulating, Scrotal elevation when sitting/laying flat, Ice (20 mins on/20 mins off) when acutely swollen or tender, Heating Pad (20 mins on/20 mins off) when sore, and avoidance of injury/protection when active. Other testicle appeared to be viable without major issue. Will plan to continue to monitor and plan for likely outpatient follow-up. Patient can either return for follow-up to our office in approximately 2 months for reevaluation or he can plan to remove follow-up with his primary team from the original orchiectomy with the torsion. Patient's complicated medical and surgical history was reviewed and summarized above all imaging was reviewed interpreted by myself all labs and vitals were reviewed. Coordinated directly with the ER physicians/clinical team for the ongoing care management the patient with recommendations for antibiotics and conservative measures and close monitoring with possibility of surgical intervention if patient develops worsening issues. History of Present Illness Attending Physician: Noemí Jacobson MD History of Present Illness New consultation for patient with severe scrotal swelling after orchiectomy from torsion. Had history of large expanding hematoma that required treatment at an outlying facility. Had the orchiectomy as well as the hematoma management at [facility]. Patient has been at the correctional institution and developed increasing issues with scrotal swelling, discomfort, and ill feelings. Patient was very concerned that he was developing another hematoma. Patient developed sudden onset of pain in the scrotum with increasing swelling and pain going down and as well as pain radiating into groin and back in waves comes and goes. Can be severe at times. Discussed and reviewed patient's family history for any history of urologic issues, torsion and other issues. Also, discussed patient's medical surgery history especially related to any history of urinary issues as well as bleeding concerns and other problems Patient had undergone urgent imaging. Found to have likely hematoma in the hemiscrotum. Had most significantly large scrotal edema with significant stranding. Had undergone CT examination which confirmed the findings. Hematoma in the scrotum was approximately 4.7 cm. Majority of the scrotal swelling appears to be coming from the edema. Due to concerns for possible developing abscess and other issues patient was placed on broad-spectrum antibiotics. Patient was admitted and is undergoing observation. Allergies Allergy/AdvReac Type Severity Reaction Status Date / Time No Known Allergies Allergy Verified 03/05/24 08:51 Home Medications Medication Instructions Recorded Confirmed Type amlodipine 10 mg tablet 10 mg PO DAILY 03/05/24 03/05/24 History atorvastatin 20 mg PO DAILY 03/05/24 03/05/24 History ibuprofen 600 mg tablet 600 mg PO Q8H PRN Pain 03/05/24 03/05/24 History insulin glargine 100 unit/mL 25 unit subcut BID 03/05/24 03/05/24 History subcutaneous solution insulin regular human 100 unit/mL 1 sliding scale dose subcut 03/05/24 03/05/24 History injection solution (Novolin R USEASDIRECTD Regular U-100 Insulin) lamotrigine 100 mg tablet 100 mg PO BID 03/05/24 03/05/24 History simethicone 180 mg capsule 180 mg PO BID PRN bloating 03/05/24 03/05/24 History Patient History Social History Smoking Status: Former smoker Hx Alcohol Use: Yes Hx Substance Use: No Preferred Language: Romansh Communication Ability: Effective 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 Restrained HEENT: Normocephalic Atraumatic. Inspection normal. Cranial Nerves 2-12 Grossly intact. Nares are clear. Neck is supple. Normal inspection of face. Normal inspection of neck. Neurologic: No deficits on inspection. Baseline for motor function and sensory. Psychologic: Normal affect. Respiratory: Nonlabored. No use of accessory muscles. No tachypnea or dyspnea. Cardiovascular: No tachycardia Skin: [place] and Dry. No rashes or visible lesions. Extremities: Moving without issues. No motor deficits on inspection Lymphatics: No edema Abdomen: Soft Non-distended. Obese no rebound or guarding. : Significant scrotal edema with moderate tenderness on deep palpation. No skin breakdown no signs of ulceration. No fluctuance Results & Data Vital Signs (Past 12 Hours) Vital Signs Temp Pulse Pulse Resp BP Pulse Ox Pulse Ox 03/05/24 10:08 36.8 C 83 20 145/96 H 100 03/05/24 07:02 77 03/05/24 06:04 82 16 164/99 H 99 03/05/24 05:58 100 03/05/24 04:38 88 03/05/24 00:37 20 98 03/05/24 00:28 91 H O2 Del Method O2 Del Method 03/05/24 10:08 Room Air 03/05/24 07:02 03/05/24 06:04 Room Air 03/05/24 05:58 Room Air 03/05/24 04:38 03/05/24 00:37 Room Air 03/05/24 00:28 PG Care Time/CCT Total # of Minutes Spent Total Time Spent with Patient: Total time spent is greater than 50% in coordination of care (as documented) at patient's floor/unit and/or counseling patient: Coding Level of Care Code 50544 IN/OBS CONSULT LVL 5,80M Diagnoses Scrotal hematoma S30.22XA Scrotal edema N50.89 History of orchiectomy Z90.79 History of torsion of testis Z87.438 Obesity E66.9
[2024-03-05] MEDS: HYDROmorphone INJ 0.5 MG/0.5 ML SYR IV PRN ×2 (12:25→16:20)
--- NOTE | 2024-03-05 14:36 | Communication Note ---
Date of Service: March 05, 2024 Patient seen and examined Reports scrotal pain and swelling started few days ago. Had left orchiectomy earlier this year for testicular torsion. This was complicated by post op hematoma that required evacuation. Denied any fever Reported an episode of hematuria which has resolved Exam notable for obese man, Enlarged scrotum, scars on left scrotum, tender Reviewed labs and CT/USS Uro evaluated and noted that an abscess had not formed. Noted residual hematoma in scrotum with severe scrotal edema No intervention recommended Continue IV antibiotics for now Elevate scrotum HbA1c is 10.4 (Patient reported last one was about 14 or so) He stated his insulin glargine was recently increased yesterday to 25U BID He stated that the facility can only do the ISS twice due to staffing. Continue insulin therapy Diet ordered. Lantus increased to 25U BID home dose WIll monitor Other plans as detailed in H/P this AM
[2024-03-05] MEDS: FUROSEMIDE 40 MG/4 ML VIAL IV ONE (16:19)
[2024-03-05] MEDS: PIPERACILLIN/TAZOBACTAM 4.5 GM/100 ML BAG IV SCH (16:39)
[2024-03-06 07:55] LABS: Hematocrit (blood only) 37.9 % (42.0-52.0); Hemoglobin 12.1 g/dl (14.0-18.0); Mean Corpuscular Hemoglobin 26.6 pg (25.0-34.0); Mean Corpuscular Hgb Conc 31.9 g/dL (32.0-36.0); Mean Corpuscular Volume 83.3 fL (80.0-100.0); Mean Platelet Volume 11.9 fL (9.4-12.4); Platelet Count 188 K/uL (130-400); RDW Coefficient of Variation 12.6 % (11.5-14.5); RDW Standard Deviation 38.5 fL (36.4-46.3); Red Blood Count 4.55 M/uL (4.70-6.10); White Blood Count 6.53 K/ul (4.8-10.8)
[2024-03-06 07:58] LABS: BUN Creatinine Ratio 15.3 (10-20); Calcium 8.7 mg/dl (8.6-10.3); Creatinine Clr Calc Pharmacy 121.8 ml/min; Est GFR (African American) 92.5 ml/min; Est GFR (Non-African American) 79.8 ml/min; Potassium 3.7 mmol/L (3.5-5.1)
--- NOTE | 2024-03-06 09:50 | Hospitalist Progress Note ---
Date of Service March 06, 2024 Assessment & Plan (1) Scrotum, abscess: Plan: 43-year-old male with past medical history significant for diabetes, hypertension, hyperlipidemia, hydrocele,seizures, osteomyelitis per patient comes from [facility] because of the left scrotal pain started 2- 3 days ago. Patient says the pain is very severe. Had some hematuria that had resolved Patient states about 7 months ago he had a left orchiectomy because of testicular torsion complicated by post op hematoma Has been in [facility] since surgery. Denied any sexual activity Scrotal pain and swelling History of left orchiectomy for testicular torsion Concern for possible scrotal abscess vs severe scrotal edema with weeping Urology on board Reviewed CT abd/P and Scrotal USS from admission Discussed with Urologist Dr Padron today He will reeval patient. Recommends getting repeat CT pelvis CT pelvis ordered Will follow up result and recs Continue IV zosyn and doxy Discussed with RN to send UA ordered Pain control Urology consult Hypertension Continue home amlodipine Poorly controlled Diabetes mellitus HbA1c is 10.4 (Patient reported last one was about 14 or so) He stated his insulin glargine was recently increased few days ago to 25U BID He stated that the facility can only do the ISS twice due to staffing. Continue insulin therapy WIll monitor Hyperlipidemia On statin History of seizures On Lamictal DVT prophylaxis SCDs for now. If no procedure, will start on pharmacologic DVT ppx Full code I spent a total of 50 minutes coordinating, documenting and providing care for this patient excluding time spent in performance of separately billed services Admission and Anticipated Discharge Date Admission Date: March 05, 2024 Subjective Patient seen and examined Reports scrotal swelling started draining yesterday and looked like a bit bloody. Still has scrotal pain Denied fever, chills Denied dysuria, freq, urgency, hematuria today Denied all complaints on ROS Physical Exam Constitutional: + well hydrated and + obese; no acute di stress Eyes: PERRL, conjunctivae normal, anicteric sclerae ENMT: external ear and nose normal, oropharynx normal Respiratory: normal respiratory effort, lungs clear to auscultation Cardiovascular: Rate/Rhythm: regular rate and regular rhythm Gastrointestinal (Abdomen): normal bowel sounds, soft, nontender, no hepatosplenomegaly Musculoskeletal: no cyanosis or clubbing, extremities motor strength 5/5 Neurologic: PERRL, EOMI, accommodation nl, no face palsy, no dysarthria Psychiatric: A+Ox3, euthymic affect Genitourinary: Significant scrotal swelling Scars on left scrotum Depends stained. No active drainage expressed at this time Results & Data Results & Data Vital Signs (Past 12 Hours) Vital Signs Temp Pulse Pulse Resp BP BP Pulse Ox 03/06/24 09:23 89 03/06/24 07:19 36.7 C 77 19 148/81 H 90 03/06/24 04:35 36.9 C 81 17 153/81 H 99 03/05/24 23:53 36.9 C 95 H 18 186/81 H 90 03/05/24 22:01 93 H O2 Del Method 03/06/24 09:23 03/06/24 07:19 Room Air 03/06/24 04:35 Room Air 03/05/24 23:53 Room Air 03/05/24 22:01 Laboratory Results Abnormal lab results 03/05/24 03/05/24 03/05/24 Range/Units 12:08 16:01 20:31 RBC (4.70-6.10) M/uL Hgb (14.0-18.0) g/dl Hct (42.0-52.0) % MCHC (32.0-36.0) g/dL Glucose (70-99(Fasting)) mg/dl POC Glucose 169 H 187 H 246 H (70-99) mg/dl 03/06/24 03/06/24 Range/Units 06:47 07:12 RBC 4.55 L (4.70-6.10) M/uL Hgb 12.1 L (14.0-18.0) g/dl Hct 37.9 L (42.0-52.0) % MCHC 31.9 L (32.0-36.0) g/dL Glucose 189 H (70-99(Fasting)) mg/dl POC Glucose 187 H (70-99) mg/dl
[2024-03-06 10:38] LABS: Appearance Urine Clear (Clear); Bacteria Urine Automated None Seen (None Seen); Bilirubin Urine Negative (Negative); Blood Urine Negative (Negative); Cast Urine Automated 0-2 /lpf (0-2); Color Urine Yellow; Epithelial Cell Urine Auto 0-2 /hpf (0-2); Glucose Urine UA Negative (Negative); Ketones Urine Trace (Negative); Leukocyte Esterase Urine Trace (Negative); Nitrite Urine Negative (Negative); Protein Urine 2+ (Negative); RBC Urine Automated 0-2 /hpf (0-2); Specific Gravity Urine 1.029 (1.000-1.030); Urobilinogen Urine Negative (Negative); WBC Urine Automated 0-5 /hpf (0-5); pH Urine 5.5 (4.5-7.5)
[2024-03-06] MEDS: OPTIRAY 320 100ml IV ONE (11:35)
[2024-03-06] MEDS: oxyCODONE HCL IR 5 MG TAB (IMMEDIATE RELEASE) PO PRN (11:44)
--- NOTE | 2024-03-06 11:56 | CT Scan Report ---
CT pelvis w/IV con only CLINICAL HISTORY: For better evaluation of scrotal swelling.R/o absces TECHNIQUE: Helical axial images of the pelvis were obtained and displayed at 5 and 1 mm intervals. Au tomated dose lowering techniques and/or adjustment according to patient size were utilized for this e xam. This exam was performed with intravenous contrast. CT DOSE: 1237.19 mGy.cm COMPARISON: Comparison is made to scrotal ultrasound 03/04/[address] abdomen pelvis 03/05/2024 FINDINGS: Bladder: Diffuse homogeneous wall thickening is seen. Reproductive organs: Marked edema of the scrotum is seen. There is hypodensity in the expected locati on of the left testis. Bowel: The appendix is normal. Lymph nodes Pelvic: Following the lymph nodes of the left measuring 12 mm. There are external iliac nodes measuri ng up to 11 mm on the left as well. Mesenteric: Unremarkable. Peritoneum: Normal Vessels: Atherosclerotic calcifications are seen. Abdominal wall: A tiny umbilical helical hernia is seen. Bones: Bilateral femoral neck screws are seen. IMPRESSION: 1. Prominent scrotal wall edema is seen. Hypodense left scrotal contents are consistent with ultraso und findings and may represent phlegmon/abscess in this patient with history of left orchiectomy. 2. Thickening of the bladder wall is nonspecific, correlation with urinalysis is recommended to excl ude UTI. ACT 112: Negative or not required by law. Electronically signed by: Lino Chris M.D. 03/06/2024 11:53 AM
--- NOTE | 2024-03-06 12:47 | Urology Progress Note ---
Date of Service March 06, 2024 Assessment & Plan (1) Scrotal hematoma: (2) Scrotal edema: (3) History of orchiectomy: (4) History of torsion of testis: (5) Obesity: (6) Wound discharge: Plan Patient presented with significant scrotal swelling. Patient has complicated h istory with history of testicular torsion requiring orchiectomy. Patient developed a large hematoma after the procedure requiring drainage and more acute management. Call last evening due to development of discharge from wound/fell drainage. Imaging that have been reviewed from yesterday and the day prior did not show abscess formation. Does have persistent likely hematoma in the hemiscrotum with severe scrotal edema. Wound care was utilized. Elevation was also utilized. Gauze was used to try to absorb the possibly purulent discharge. Patient had remained afebrile. Vitals have otherwise remained stable. Patient has had increasing issues and increasing concern especially with the development of discharge. On examination patient found to have tract in the left hemiscrotum with weeping fluid/drainage. Small amount of blood was appreciated draining from the tract. No fluctuance or severe induration or signs of expanding cellulitis however severe edema around the area. Did appear to be the likely site of the patient's drain placement from the hematoma management after the orchiectomy. With the possible purulence it was decided to further open the track and place sterile packing. Please see below for the procedure. Patient tolerated the packing placement and drainage Patient is currently incarcerated at correction[facility]. He had developed sudden onset of significant swelling pain and discomfort and was very concerned about developing a new scrotal hematoma. Discussed with hospitalist team this morning. Discussed concerns and issues especially possibility of developing abscess with persistent hematoma. Discussed the severity of the scrotal edema and possibly weeping fluid from the edematous changes in the scrotum. Did discuss need for local wound care and would recommend wound care nurse assessment for further management. A urgent/emergent CT scan was completed in order to assess for possible abscess. This was reviewed interpreted by myself. Patient does have a likely persistent hematoma with no signs of free air or gas or developing abscess. Does have severe significant scrotal edema throughout the subcutaneous tissues of the scrotum. Does not appear to be worsening or increasing. Reviewed extensively with patient. Examined today. Discussed ongoing options moving forward. Recommend continued IV antibiotics and observation. Would recommend continued conservative measures with elevation, compression, ice, and ongoing support. Would also recommend wound care assessment for ongoing discharge issues. No drainable abscess was appreciated on the CT scan. Will continue to observe if something does develop or if patient develops severe induration, cellulitis, fluctuance or other sign of developing abscess would consider possible surgical drainage at this time we will plan for continued observation. Drainage of hematoma/abscess and sterile packing Anesthetic: none Patient was prepped and draped in the standard sterile fashion after cleaning around the wound. The wound tract was first probed utilizing a cotton swab. Loculations and a fluid cavity was able to be appreciated. A sterile culture swab was then selected and the wound was further probed for deep culture. A moderate amount of what appeared to be old hematoma/possible purulent fluid was able to be drained. The swab was then sent for culture. The swab was able to enter the cavity approximately 3.5 cm deep in the hemiscrotum on the left. Utilizing additional cotton swabs the area was then further probed. Additional loculations and fluid was able to be manipulated and drained from the cavity. Patient tolerated the intervention without major issue or severe pain. Had some relief of pain with the discharge drainage. The area was then cleaned and flushed. Sterile packing was then selected. Quarter inch sterile packing was utilized. The packing was folded in half and able to be inserted using forceps into the deep portion of the cavity. Packing was then placed with the both ends out from the opening of the wound. The skin and tissue around the wound were assessed. No signs of significant erythema. No signs of induration or other issues. While probing the wound with the cotton swabs there was no obvious other fluid collections or other major abnormalities appreciated. The patient was then further cleaned. Sterile 4 x 4 gauze was placed over the packing and. Will plan to maintain packing for approximately 12 to 24 hours. Would recommend wound care assessment and plans for further evaluation in order to determine next [place] local wound management. No obvious drainable or concerning abscess cavities have been noted on the CT examination. The severity of the scrotal edema likely limited the assessment however there was no signs of free air and as the patient did experience some spontaneous drainage overnight the developing possible abscess may have been partially drained spontaneously on its own. Admission and Anticipated Discharge Date Admission Date: March 05, 2024 Subjective Patient admitted with severe scrotal edema with history of orchiectomy secondary to torsion with nonviable testicle and development of hematoma with significant drainage and infection. Patient had procedures at outlying facility. Patient is afebrile. Has been supportive care and monitoring with conservative measures, oral medications, IV medications, IV fluids, and oral intake. Patient developed discharge last evening possibly weeping from the severe edema. Was somewhat foul-smelling and concerning for possible draining abscess. Has not had severe episode or major increase in pain or major issues. Has not developed severe vomiting or other issues. Patient has remained afebrile. Has not experienced fever or chills. No severe episodes or major changes. Patient underwent CT examination today to rule out abscess formation with the known persistent hematoma and severe scrotal edema. Review of Systems Review of Systems: All systems reviewed & are unremarkable except as noted in HPI & below Physical Exam Physical Exam: General: Alert in no acute distress. Obese. Restrained HEENT: Normocephalic Atraumatic. Inspection normal. Cranial Nerves 2-12 Grossly intact. Normal inspection of face. Normal inspection of neck. Psychologic: Normal affect. Respiratory: Nonlabored. No use of accessory muscles. No tachypnea or dyspnea. Cardiovascular: No tachycardia Skin: [place] and Dry. No rashes or visible lesions. Extremities/Lymphatics: No edema Abdomen: Soft Non-distended. Obese. No rebound or guarding. : Severe scrotal edema. Tenderness Draining tract on the left hemiscrotum with mild induration and clear discharge. Wound was further opened and probed and drained and a mild to moderate amount of purulent appearing drainage and old appearing hematoma was able to be flushed and drained from the wound. Sterile quarter inch packing was then placed and 4 x 4 gauze Results & Data Vital Signs (Past 12 Hours) Vital Signs Temp Pulse Pulse Resp BP BP Pulse Ox 03/06/24 11:14 36.5 C 75 19 155/84 H 90 03/06/24 09:23 89 03/06/24 07:19 36.7 C 77 19 148/81 H 90 03/06/24 04:35 36.9 C 81 17 153/81 H 99 O2 Del Method 03/06/24 11:14 Room Air 03/06/24 09:23 03/06/24 07:19 Room Air 03/06/24 04:35 Room Air PG Care Time/CCT Total # of Minutes Spent Total Time Spent with Patient: Total time spent is greater than 50% in coordination of care (as documented) at patient's floor/unit and/or counseling patient: Coding Level of Care Code 02378 SUB INP/OBS CARE 350MIN Diagnoses Scrotal hematoma S30.22XA Scrotal edema N50.89 History of orchiectomy Z90.79 History of torsion of testis Z87.438 Obesity E66.9 Wound discharge T14.8XXA CPT Codes Drainage of Hematoma/Fluid - [id number] ([id number])
[2024-03-07 06:21] LABS: Hematocrit (blood only) 35.6 % (42.0-52.0); Hemoglobin 11.6 g/dl (14.0-18.0); Mean Corpuscular Hemoglobin 26.5 pg (25.0-34.0); Mean Corpuscular Hgb Conc 32.6 g/dL (32.0-36.0); Mean Corpuscular Volume 81.5 fL (80.0-100.0); Mean Platelet Volume 11.4 fL (9.4-12.4); Platelet Count 201 K/uL (130-400); RDW Coefficient of Variation 12.2 % (11.5-14.5); RDW Standard Deviation 36.8 fL (36.4-46.3); Red Blood Count 4.37 M/uL (4.70-6.10); White Blood Count 5.13 K/ul (4.8-10.8)
[2024-03-07 06:28] LABS: BUN Creatinine Ratio 12.5 (10-20); Calcium 8.6 mg/dl (8.6-10.3); Creatinine Clr Calc Pharmacy 130.5 ml/min; Est GFR (Non-African American) 86.3 ml/min; Potassium 3.6 mmol/L (3.5-5.1)
--- NOTE | 2024-03-07 14:37 | Urology Progress Note ---
Date of Service March 07, 2024 Assessment & Plan (1) Scrotal edema: (2) Scrotal hematoma: (3) History of torsion of testis: (4) History of orchiectomy: (5) Wound discharge: Plan 43yo/M with a history of testicular torsion requiring orchiectomy approx 7mo ago at an outside facility which was complicated by postop hematoma requiring drainage. He presented to [facility] ED 03/05/24 with significant scrotal swelling and pain. On exam he was found to have a tract in the left hemiscrotum which was likely the site of the patient's drain placement from the hematomata management after the orchiectomy. A CT Pelvis was obtained and notable for prominent scrotal wall edema and hypodense left scrotal contents which may represent phlegmon/abscess. He underwent bedside drainage of hematoma/abscess on 03/06/[address] Padron. He is afebrile with stable vitals. Labs today show no leukocytosis and normal renal function. Scrotal wound cultures pending. He is on Zosyn and Doxycycline. Exam today consistent with recent drainage of hematoma/abscess. Packing in place to left hemiscrotum. There is serosanguineous drainage on dressing covering wound. Patient reports nursing exchanged his packing/dressing early this morning. He continues to have severe scrotal edema. No areas of fluctuance appreciated on exam today. Wound care nurse consulted. Continue local wound care and packing exchanges per [facility] recommendations. Continue supportive care and antibiotic therapy. Would recommend follow-up with his primary urologist after discharge or we can arrange with our office if needed. Urology will follow. Plan reviewed with Dr. Padron. Admission and Anticipated Discharge Date Admission Date: March 05, 2024 Subjective Pt seen at bedside today Awake, resting in bed on arrival No acute distress Guards at bedside He reports an overall improvement in scrotal pain Scrotal packing remains in place - He reports nursing exchanged packing/dressing overnight/early AM Voiding without issue Denies f/c/n/v Review of Systems Constitutional: as per Subjective / HPI Gastrointestinal: as per Subjective / HPI Genitourinary: + as per Subjective / HPI Physical Exam Constitutional: + obese; no acute distress Restrained Respiratory: no respiratory distress and no labored breathing Neurologic: awake Psychiatric: Orientation: alert, oriented x 3 and cooperative Genitourinary: Severe scrotal edema. Tender on exam. Packing in place to left hemiscrotum. Mild induration. Serosanguineous drainage on dressing covering wound. No active drainage or bleeding. No areas of fluctuance or ulceration appreciated. Results & Data Vital Signs (Past 12 Hours) Vital Signs Temp Pulse Resp BP BP Pulse Ox O2 Del Method 03/07/24 11:07 36.6 C 72 8 L 131/79 90 Room Air 03/07/24 08:41 36.9 C 79 14 169/95 H Room Air 03/07/24 03:36 36.7 C 71 18 143/82 H 90 Room Air PG Care Time/CCT Total # of Minutes Spent Total Time Spent with Patient: Total time spent is greater than 50% in coordination of care (as documented) at patient's floor/unit and/or counseling patient: Coding Level of Care Code 42197 SUB INP/OBS CARE 2/35MIN Diagnoses Scrotal edema N50.89 Scrotal hematoma S30.22XA History of torsion of testis Z87.438 History of orchiectomy Z90.79 Wound discharge T14.8XXA
[2024-03-07] MEDS: DOCUSATE SODIUM/SENNA 50/8.6MG TAB PO SCH (14:45)
--- NOTE | 2024-03-07 15:42 | Hospitalist Progress Note ---
Date of Service March 07, 2024 Assessment & Plan (1) Scrotum, abscess: Plan: 43-year-old male with past medical history significant for diabetes, hypertension, hyperlipidemia, hydrocele,seizures, osteomyelitis per patient comes from [facility] because of the left scrotal pain started 2- 3 days ago. Patient says the pain is very severe. Had some hematuria that had resolved Patient states about 7 months ago he had a left orchiectomy because of testicular torsion complicated by post op hematoma Has been in [facility] since surgery. Denied any sexual activity Scrotal pain and swelling History of left orchiectomy for testicular torsion Reviewed CT abd/P and Scrotal USS from admission Had bedside drainage of hematoma/abscess on 03/06/[address] Padron Continue IV zosyn and doxy Wound care consulted Pain control Will need urology follow up outpatient Hypertension Continue home amlodipine Poorly controlled Diabetes mellitus HbA1c is 10.4 (Patient reported last one was about 14 or so) He stated his insulin glargine was recently increased few days ago to 25U BID He stated that the facility can only do the ISS twice due to staffing. Continue insulin therapy Monitor Hyperlipidemia On statin History of seizures On Lamictal DVT prophylaxis Hep sq Full code I spent a total of 40 minutes coordinating, documenting and providing care for this patient excluding time spent in performance of separately billed services Admission and Anticipated Discharge Date Admission Date: March 05, 2024 Subjective Patient seen and examined Had bedside drainage of hematoma/abscess on 03/06/[address] Padron Reports scrotal pain is better controlled Denied fever, chills Denied dysuria, freq, urgency, hematuria Reports constipation but passing flatus. No nausea, vomiting, abd pain Denied all complaints on ROS Physical Exam Constitutional: + well hydrated and + obese; no acute di stress Eyes: PERRL, conjunctivae normal, anicteric sclerae ENMT: external ear and nose normal, oropharynx normal Respiratory: normal respiratory effort, lungs clear to auscultation Cardiovascular: Rate/Rhythm: regular rate and regular rhythm Gastrointestinal (Abdomen): normal bowel sounds, soft, nontender, no hepatosplenomegaly Musculoskeletal: no cyanosis or clubbing, extremities motor strength 5/5 Neurologic: PERRL, EOMI, accommodation nl, no face palsy, no dysarthria Psychiatric: A+Ox3, euthymic affect Genitourinary: Significant scrotal swelling Draining tract in left scrotum with packing. Scars on left scrotum Results & Data Results & Data Vital Signs (Past 12 Hours) Vital Signs Temp Pulse Resp BP Pulse Ox O2 Del Method 03/07/24 11:07 36.6 C 72 8 L 131/79 90 Room Air 03/07/24 08:41 36.9 C 79 14 169/95 H Room Air Laboratory Results Abnormal lab results 03/06/24 03/06/24 03/07/24 Range/Units 16:03 20:10 05:35 RBC 4.37 L (4.70-6.10) M/uL Hgb 11.6 L (14.0-18.0) g/dl Hct 35.6 L (42.0-52.0) % Glucose 113 H (70-99(Fasting)) mg/dl POC Glucose 159 H 154 H (70-99) mg/dl 03/07/24 Range/Units 12:06 RBC (4.70-6.10) M/uL Hgb (14.0-18.0) g/dl Hct (42.0-52.0) % Glucose (70-99(Fasting)) mg/dl POC Glucose 162 H (70-99) mg/dl
[2024-03-07] MEDS: HEPARIN SOD 5,000 UNIT/0.5 ML VIAL SQ SCH (20:31)
[2024-03-08 08:05] LABS: Hematocrit (blood only) 37.7 % (42.0-52.0); Hemoglobin 12.4 g/dl (14.0-18.0); Mean Corpuscular Hemoglobin 26.4 pg (25.0-34.0); Mean Corpuscular Hgb Conc 32.9 g/dL (32.0-36.0); Mean Corpuscular Volume 80.4 fL (80.0-100.0); Platelet Count 228 K/uL (130-400); RDW Coefficient of Variation 12.4 % (11.5-14.5); RDW Standard Deviation 35.8 fL (36.4-46.3); Red Blood Count 4.69 M/uL (4.70-6.10); White Blood Count 5.08 K/ul (4.8-10.8)
[2024-03-08 08:24] LABS: BUN Creatinine Ratio 14.3 (10-20); Calcium 9.2 mg/dl (8.6-10.3); Creatinine Clr Calc Pharmacy 128.9 ml/min; Est GFR (African American) 98.9 ml/min; Est GFR (Non-African American) 85.3 ml/min; Potassium 3.9 mmol/L (3.5-5.1)
--- NOTE | 2024-03-08 09:03 | Urology Progress Note ---
Date of Service March 08, 2024 Assessment & Plan (1) Scrotal edema: (2) Scrotal hematoma: (3) History of torsion of testis: (4) History of orchiectomy: (5) Wound discharge: Plan 43yo/M with a history of testicular torsion requiring orchiectomy approx 7mo ago at an outside facility complicated by postop hematoma requiring drainage. He was admitted on 03/05/24 for scrotal swelling and pain. CT Pelvis on arrival was notable for prominent scrotal wall edema and hypodense left scrotal contents which may represent phlegmon/abscess. He underwent bedside drainage of hematoma/abscess on 03/06/[address] Padron. He is afebrile and hemodynamically stable. Labs today show no leukocytosis and normal renal function. Scrotal wound cultures prelim with pin point growthfollow cultures. He is on Zosyn and Doxycycline. Pain is adequately controlled. Exam consistent with recent drainage of hematoma/abscess. Packing in place to left hemiscrotum. There is serosanguineous drainage on dressing covering wound. Nursing exchanged his packing/dressing early yesterday morning. He continues to have severe scrotal edema. No areas of fluctuance appreciated on exam today. Wound care nurse consulted. Continue local wound care and packing exchanges per [facility] recommendations. Continue supportive care, pain management and antibiotic therapy. Recommend follow-up with his primary urologist after discharge or we can arrange with our office if needed. Urology will follow peripherally. Admission and Anticipated Discharge Date Admission Date: March 05, 2024 Subjective Pt seen at bedside this am Guards present He is awake and sitting up eating breakfast, NAD He reports overall improvement in scrotal pain Scrotal packing remains in place Packing exchanged by nursing on 03/07 Voiding without issue Denies fever or chills Review of Systems Constitutional: as per Subjective / HPI Genitourinary: + as per Subjective / HPI Physical Exam Constitutional: + obese; no acute distress Restrained Respiratory: no respiratory distress and no labored breathing Neurologic: awake Psychiatric: Orientation: alert, oriented x 3 and cooperative Genitourinary: Significant scrotal edema. Some tenderness on exam. Packing in place to left hemiscrotum. Mild induration. Serosanguineous drainage on dressing covering wound. No active drainage or bleeding. No areas of fluctuance or ulceration appreciated. Results & Data Vital Signs (Past 12 Hours) Vital Signs Temp Pulse Pulse Resp BP Pulse Ox Pulse Ox 03/08/24 07:13 36.7 C 70 19 139/71 92 03/08/24 05:00 95 03/08/24 02:35 36.8 C 69 18 126/76 92 03/07/24 23:28 76 03/07/24 23:21 03/07/24 23:12 36.6 C 76 18 158/92 H 94 O2 Del Method O2 Del Method 03/08/24 07:13 Room Air 03/08/24 05:00 Room Air 03/08/24 02:35 Room Air 03/07/24 23:28 03/07/24 23:21 Room Air 03/07/24 23:12 Room Air PG Care Time/CCT Total # of Minutes Spent Total Time Spent with Patient: Total time spent is greater than 50% in coordination of care (as documented) at patient's floor/unit and/or counseling patient: Coding Level of Care Code 51929 SUB INP/OBS CARE 25MIN Diagnoses Scrotal edema N50.89 Scrotal hematoma S30.22XA History of torsion of testis Z87.438 History of orchiectomy Z90.79 Wound discharge T14.8XXA
--- NOTE | 2024-03-08 12:06 | Hospitalist Progress Note ---
Date of Service March 08, 2024 Assessment & Plan (1) Scrotum, abscess: Plan: 43-year-old male with past medical history significant for diabetes, hypertension, hyperlipidemia, hydrocele,seizures, osteomyelitis per patient [facility] because of the left scrotal pain started 2- 3 days ago. Patient says the pain is very severe. Had some hematuria that had resolved Patient states about 7 months ago he had a left orchiectomy because of testicular torsion complicated by post op hematoma Has been in long term since surgery. Denied any sexual activity Scrotal pain and swelling History of left orchiectomy for testicular torsion Reviewed CT abd/P and Scrotal USS from admission Had bedside drainage of hematoma/abscess on 03/06/[address] Padron Currently on IV zosyn and doxy Awaiting wound care eval Pain controlled Will need urology follow up outpatient Hypertension Continue home amlodipine Poorly controlled Diabetes mellitus HbA1c is 10.4 (Patient reported last one was about 14 or so) He stated his insulin glargine was recently increased few days ago to 25U BID He stated that the facility can only do the ISS twice due to staffing. Continue insulin therapy May consider change in insulin regime to 70/30 or addition of oral antidiabetics on dc depending on what is able to be done at [facility]al facility Hyperlipidemia On statin History of seizures On Lamictal DVT prophylaxis Hep sq Full code I spent a total of 40 minutes coordinating, documenting and providing care for this patient excluding time spent in performance of separately billed services Admission and Anticipated Discharge Date Admission Date: March 05, 2024 Subjective Patient seen and examined Reports scrotal pain is well controlled No new complaints Physical Exam Constitutional: + well hydrated and + obese; no acute di stress Eyes: PERRL, conjunctivae normal, anicteric sclerae ENMT: external ear and nose normal, oropharynx normal Respiratory: normal respiratory effort, lungs clear to auscultation Cardiovascular: Rate/Rhythm: regular rate and regular rhythm Gastrointestinal (Abdomen): normal bowel sounds, soft, nontender, no hepatosplenomegaly Musculoskeletal: no cyanosis or clubbing, extremities motor strength 5/5 Neurologic: PERRL, EOMI, accommodation nl, no face palsy, no dysarthria Psychiatric: A+Ox3, euthymic affect Genitourinary: Significant scrotal swelling Draining tract in left scrotum with packing Results & Data Results & Data Vital Signs (Past 12 Hours) Vital Signs Temp Pulse Resp BP Pulse Ox Pulse Ox O2 Del Method 03/08/24 11:10 36.9 C 72 18 144/84 H 93 Room Air 03/08/24 07:13 36.7 C 70 19 139/71 92 Room Air 03/08/24 05:00 95 03/08/24 02:35 36.8 C 69 18 126/76 92 Room Air O2 Del Method 03/08/24 11:10 03/08/24 07:13 03/08/24 05:00 Room Air 03/08/24 02:35 Laboratory Results Abnormal lab results 03/07/24 03/07/24 03/08/24 Range/Units 16:15 20:30 07:12 RBC (4.70-6.10) M/uL Hgb (14.0-18.0) g/dl Hct (42.0-52.0) % RDW Std Deviation (36.4-46.3) fL POC Glucose 108 H 127 H 100 H (70-99) mg/dl 03/08/24 03/08/24 Range/Units 07:34 11:09 RBC 4.69 L (4.70-6.10) M/uL Hgb 12.4 L (14.0-18.0) g/dl Hct 37.7 L (42.0-52.0) % RDW Std Deviation 35.8 L (36.4-46.3) fL POC Glucose 144 H (70-99) mg/dl
[2024-03-09 06:40] LABS: Hematocrit (blood only) 37.5 % (42.0-52.0); Hemoglobin 12.5 g/dl (14.0-18.0); Mean Corpuscular Hemoglobin 26.9 pg (25.0-34.0); Mean Corpuscular Hgb Conc 33.3 g/dL (32.0-36.0); Mean Corpuscular Volume 80.8 fL (80.0-100.0); Mean Platelet Volume 11.1 fL (9.4-12.4); Platelet Count 240 K/uL (130-400); RDW Coefficient of Variation 12.3 % (11.5-14.5); RDW Standard Deviation 35.8 fL (36.4-46.3); Red Blood Count 4.64 M/uL (4.70-6.10); White Blood Count 4.38 K/ul (4.8-10.8)
[2024-03-09 06:43] LABS: BUN Creatinine Ratio 18.4 (10-20); Calcium 9.1 mg/dl (8.6-10.3); Creatinine Clr Calc Pharmacy 131.2 ml/min; Est GFR (African American) 101.2 ml/min; Est GFR (Non-African American) 87.3 ml/min
--- NOTE | 2024-03-09 14:59 | Hospitalist Progress Note ---
Date of Service March 09, 2024 Assessment & Plan (1) Scrotum, abscess: Plan: 43 yo M w/ PMH of diabetes, hypertension, hyperlipidemia, hydrocele, seizures, osteomyelitis comes from [facility] because of the left scrotal pain that started 2- 3 days ago [employer]. Patient says the pain was very severe. Had some hematuria that had resolved. Patient states about 7 months ago he had a left orchiectomy because of testicular torsion and was complicated by post op hematoma. Has been in detention since surgery. Denied any sexual activity. He is being managed for the following: Scrotal pain and swelling Concern for scrotal infection of hematoma/abscess History of left orchiectomy for testicular torsion Reviewed CT abd/P and Scrotal USS from admission Had bedside drainage of hematoma/abscess on 03/06/[address] Padron Currently on IV zosyn and doxy WOCN on board, pt will need wound care on dc. Scrotal cx non conclusive. ID consult, await recs Pain controlled Will need urology follow up outpatient Hypertension: Continue home amlodipine Poorly controlled Diabetes mellitus: HbA1c is 10.4 (Patient reported last one was about 14 or so) He stated his insulin glargine was recently increased few days ago to 25U BID He stated that the facility can only do the ISS twice due to staffing. Continue insulin therapy May consider change in insulin regime to 70/30, and close f/u w/ provider for ongoing diabetes care. Pt states he didn't tolerate metformin in the past. Hyperlipidemia: On statin History of seizures: On Lamictal DVT prophylaxis: Hep sq Full code Admission and Anticipated Discharge Date Admission Date: March 05, 2024 Subjective Patient seen and examined at bedside. Reports scrotal pain is well controlled. Reports eating okay and moving bowels okay. No new complaints. Physical Exam Physical Exam: General- Not in acute distress, Obese class II. Head- atraumatic Eyes- PERRL. ENT- oropharynx clear Neck- supple, no JVD. Lungs- clear to auscultation no wheezing or crackles Heart- regular rate and rhythm; no murmur, no gallop. Abdomen- normal bowel sounds, soft, nontender, no distension Extremities- no pretibial edema, no erythema seen Neuro- alert, oriented PERRL, no facial palsy; no dysarthria; Scrotal swelling. Serosanguineous drainage on dressing. tender ness improving per pt. Results & Data Results & Data Vital Signs (Past 12 Hours) Vital Signs Temp Pulse Pulse Resp BP BP Pulse Ox 03/09/24 12:15 36.6 C 68 18 135/79 94 03/09/24 07:32 36.3 C L 71 20 136/82 91 03/09/24 05:35 70 03/09/24 03:00 36.8 C 70 20 133/83 92 O2 Del Method 03/09/24 12:15 Room Air 03/09/24 07:32 Room Air 03/09/24 05:35 03/09/24 03:00 Room Air
[2024-03-10 06:53] LABS: Hematocrit (blood only) 40.5 % (42.0-52.0); Hemoglobin 12.9 g/dl (14.0-18.0); Mean Corpuscular Hemoglobin 26.3 pg (25.0-34.0); Mean Corpuscular Hgb Conc 31.9 g/dL (32.0-36.0); Mean Corpuscular Volume 82.7 fL (80.0-100.0); Mean Platelet Volume 10.5 fL (9.4-12.4); Platelet Count 262 K/uL (130-400); RDW Coefficient of Variation 12.7 % (11.5-14.5); RDW Standard Deviation 38.4 fL (36.4-46.3); White Blood Count 4.91 K/ul (4.8-10.8)
[2024-03-10 07:04] LABS: BUN Creatinine Ratio 17.1 (10-20); Calcium 9.5 mg/dl (8.6-10.3); Creatinine Clr Calc Pharmacy 127.9 ml/min; Est GFR (African American) 98.9 ml/min; Est GFR (Non-African American) 85.3 ml/min; Magnesium 1.9 mg/dl (1.7-2.4)
[2024-03-10] MEDS: ADVANCED PROBIOTIC 625 MG CAPSULE PO SCH (08:03)
--- NOTE | 2024-03-10 15:57 | Hospitalist Progress Note ---
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 Patient says the pain was very severe. Had some hematuria that had resolved. Patient states about 7 months ago he had a left orchiectomy because of testicular torsion and was complicated by post op hematoma. Has been in [facility] since surgery. Denied any sexual activity. He is being managed for the following: Scrotal pain and swelling Concern for scrotal infection of hematoma/abscess History of left orchiectomy for testicular torsion Reviewed CT abd/P and Scrotal USS from admission Had bedside drainage of hematoma/abscess on 03/06/[address] Padron Currently on IV zosyn and doxy WOCN on board, pt will need wound care on dc. Scrotal cx non conclusive. ID consult, await recs Pain controlled Will need urology follow up outpatient Hypertension: Continue home amlodipine Poorly controlled Diabetes mellitus: HbA1c is 10.4 (Patient reported last one was about 14 or so) He stated his insulin glargine was recently increased few days ago to 25U BID He stated that the facility can only do the ISS twice due to staffing. Continue insulin therapy May consider change in insulin regime to 70/30, and close f/u w/ provider for ongoing diabetes care. Pt states he didn't tolerate metformin in the past. Hyperlipidemia: On statin History of seizures: On Lamictal DVT prophylaxis: Hep sq Full code Admission and Anticipated Discharge Date Admission Date: March 05, 2024 Subjective Patient seen and examined at bedside. Reports scrotal pain is well controlled. Reports eating okay and moving bowels okay. No new complaints. Physical Exam Physical Exam: General- Not in acute distress, Obese class II. Head- atraumatic Eyes- PERRL. ENT- oropharynx clear Neck- supple, no JVD. Lungs- clear to auscultation no wheezing or crackles Heart- regular rate and rhythm; no murmur, no gallop. Abdomen- normal bowel sounds, soft, nontender, no distension Extremities- no pretibial edema, no erythema seen Neuro- alert, oriented PERRL, no facial palsy; no dysarthria; Scrotal swelling. Serosanguineous drainage on dressing. tender ness improving per pt. Results & Data Results & Data Vital Signs (Past 12 Hours) Vital Signs Temp Pulse Pulse Resp BP BP Pulse Ox 03/10/24 13:00 73 03/10/24 11:44 36.8 C 64 18 106/73 97 03/10/24 07:02 36.6 C 69 18 158/94 H 91 03/10/24 05:47 69 O2 Del Method 03/10/24 13:00 03/10/24 11:44 Room Air 03/10/24 07:02 Room Air 03/10/24 05:47
[2024-03-10] MEDS: DOXYCYCLINE HYCLATE 100 MG CAP PO SCH (21:01)
[2024-03-11 07:45] LABS: Hematocrit (blood only) 42.7 % (42.0-52.0); Hemoglobin 14.1 g/dl (14.0-18.0); Mean Corpuscular Volume 81.6 fL (80.0-100.0); Mean Platelet Volume 11.1 fL (9.4-12.4); Platelet Count 295 K/uL (130-400); RDW Standard Deviation 38.1 fL (36.4-46.3); Red Blood Count 5.23 M/uL (4.70-6.10); White Blood Count 5.92 K/ul (4.8-10.8)
[2024-03-11 07:51] LABS: BUN Creatinine Ratio 16.1 (10-20); Calcium 9.7 mg/dl (8.6-10.3); Creatinine Clr Calc Pharmacy 118.4 ml/min; Est GFR (African American) 91.5 ml/min; Est GFR (Non-African American) 78.9 ml/min; Potassium 4.2 mmol/L (3.5-5.1)
--- NOTE | 2024-03-11 14:51 | Hospitalist Progress Note ---
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 Patient says the pain was very severe. Had some hematuria that had resolved. Patient states about 7 months ago he had a left orchiectomy because of testicular torsion and was complicated by post op hematoma. Has been in [facility] since [facility]. Denied any sexual activity. He is being managed for the following: Scrotal pain and swelling Concern for scrotal infection of hematoma/abscess History of left orchiectomy for testicular torsion Reviewed CT abd/P and Scrotal USS from admission Had bedside drainage of hematoma/abscess on 03/06/[address] Padron Currently on IV zosyn and doxy WOCN on board, pt will need wound care on dc. Scrotal cx non conclusive. d/w ID 03/11: zosyn while inpatient and cipro 500 mg bid + Augmentin 875 mg bid to complete 2 weeks antibiotic therapy s/p bedside debridement on 03/06/2024. Pain controlled Will need urology follow up outpatient Hypertension: Continue home amlodipine Poorly controlled Diabetes mellitus: HbA1c is 10.4 (Patient reported last one was about 14 or so) He stated his insulin glargine was recently increased few days ago to 25U BID He stated that the facility can only do the ISS twice due to staffing. Continue insulin therapy May consider change in insulin regime to 70/30, and close f/u w/ provider for ongoing diabetes care. Pt states he didn't tolerate metformin in the past. Hyperlipidemia: On statin History of seizures: On Lamictal DVT prophylaxis: Hep sq Full code total time spent 55 min Admission and Anticipated Discharge Date Admission Date: March 05, 2024 Subjective Patient seen and examined at bedside. Reports scrotal pain is well controlled. Reports eating okay and moving bowels okay. No new complaints. Reached out to ID directly in AM that I have consult on the patient. I was instructed to reach out to their school secretary for ID physician to see the patient. I communicated w/ RN and Denisha navigator who sorted out the issues and had the patient on the list for the ID physician to see. Later in the day I contacted by ID physician that ID cart was not working and she would like to recommend zosyn while inpatient and cipro 500 mg bid + Augmentin 875 mg bid to complete 2 weeks antibiotic therapy s/p bedside debridement on 03/06/2024. Since the discussion was had, ID won't plan to see the patient due to issues w/ ID cart and was requested for consult be cancelled. Will cancel ID consult. Physical Exam Physical Exam: General- Not in acute distress, Obese class II. Head- atraumatic Eyes- PERRL. ENT- oropharynx clear Neck- supple, no JVD. Lungs- clear to auscultation no wheezing or crackles Heart- regular rate and rhythm; no murmur, no gallop. Abdomen- normal bowel sounds, soft, nontender, no distension Extremities- no pretibial edema, no erythema seen Neuro- alert, oriented PERRL, no facial palsy; no dysarthria; Scrotal swelling. Serosanguineous drainage on dressing. tender ness improving per pt. Results & Data Results & Data Vital Signs (Past 12 Hours) Vital Signs Temp Pulse Resp BP BP Pulse Ox O2 Del Method 03/11/24 10:27 36.7 C 70 19 133/80 95 Room Air 03/11/24 07:08 36.7 C 68 19 126/81 94 Room Air 03/11/24 04:44 36.6 C 68 18 119/79 96 Room Air
[2024-03-12 06:31] LABS: Hematocrit (blood only) 40.6 % (42.0-52.0); Hemoglobin 13.4 g/dl (14.0-18.0); Mean Corpuscular Hemoglobin 26.9 pg (25.0-34.0); Mean Corpuscular Volume 81.5 fL (80.0-100.0); Mean Platelet Volume 10.6 fL (9.4-12.4); Platelet Count 289 K/uL (130-400); RDW Coefficient of Variation 13.3 % (11.5-14.5); RDW Standard Deviation 38.5 fL (36.4-46.3); Red Blood Count 4.98 M/uL (4.70-6.10); White Blood Count 5.56 K/ul (4.8-10.8)
[2024-03-12 06:43] LABS: Calcium 9.4 mg/dl (8.6-10.3); Creatinine Clr Calc Pharmacy 102.4 ml/min; Est GFR (African American) 76.4 ml/min; Est GFR (Non-African American) 65.9 ml/min; Potassium 3.9 mmol/L (3.5-5.1)
[2024-03-12 08:01] VITALS: RESP 18; TEMP 98.2
[2024-03-12 12:23] VITALS: BP 136/85; PULSE 79; O2SAT 94
--- NOTE | 2024-03-12 13:34 | Discharge Summary ---
Date of Service March 12, 2024 Admission HPI Per Admitting Provider 43-year-old male with past medical history significant for diabetes, hypertension, hyperlipidemia, hydrocele,seizures, osteomyelitis per patient [facility] from [facility] because of the left scrotal pain started 2- 3 days ago. Patient says the pain is very severe. Micturating okay. Initially noticed some blood in the urine. Patient states about 7 months ago he had a left orchiectomy because of testicular torsion. Denies any fever. Has right lower abdominal pain. Constipated. Denies any blood in the stools. No chest pain or shortness of. No nausea. No headache. No runny nose or sore throat. No cough. . Currently hemodynamics are okay. Patient states has been in [facility] for last 7 months. No sexual activity since been in the [facility]. Past medical history. As mentioned above Past surgical history. Left orchectomy. Bilateral foot foot surgery for osteomyelitis. Social social history. Used to smoke 6 to 7 cigarettes daily for 14 years and last smoking was 7 months ago. Used to drink alcohol heavily but last drink was 7 months ago. Patient used to smoked marijuana once in a while. Family history. Significant for diabetes, cancer, CHF Admission Exam Per Admitting Provider General- Not in acute distress Head- atraumatic Eyes- PERRL. ENT- oropharynx clear Neck- supple, no JVD. Lungs- clear to auscultation no wheezing or crackles Heart- regular rate and rhythm; no murmur, no gallop. Abdomen- normal bowel sounds, soft, nontender, no distension Extremities- no pretibial edema, no erythema seen Neuro- alert, oriented PERRL, no facial palsy; no dysarthria; Scrotal swelling with mild erythema seen. Principal Diagnosis Scrotal pain and swelling Concern for scrotal infection of hematoma/abscess History of left orchiectomy for testicular torsion Poorly controlled Diabetes mellitus Discharge Exam General- Not in acute distress, Obese class II. Head- atraumatic Eyes- PERRL. ENT- oropharynx clear Neck- supple, no JVD. Lungs- clear to auscultation no wheezing or crackles Heart- regular rate and rhythm; no murmur, no gallop. Abdomen- normal bowel sounds, soft, nontender, no distension Extremities- no pretibial edema, no erythema seen Neuro- alert, oriented PERRL, no facial palsy; no dysarthria; Scrotal swelling. Serosanguineous drainage on dressing. tender ness improving per pt. Discharge Data Allergies Allergy/AdvReac Type Severity Reaction Status Date / Time No Known Allergies Allergy Verified 03/05/24 08:51 Consultations 03/05/24 03:54 ED Decision to Admit Stat 03/05/24 08:00 Consult Urology Routine Ordered Studies 03/04/24 20:50 US Testicles [US scrotum/testicle] Stat 03/05/24 00:37 CT abd pelvis IV con only Stat 03/06/24 09:54 CT pelvis w/IV con only Urgent Diabetes Follow up Diabetes Follow-up Needed for HgbA1c >9% Hospital Course (1) Scrotum, abscess: 43 yo M w/ PMH of diabetes, hypertension, hyperlipidemia, hydrocele, seizures, osteomyelitis comes from [facility] because of the left scrotal pain that started 2- 3 days 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 Patient says the pain was very severe. Had some hematuria that had resolved. Patient states about 7 months ago he had a left orchiectomy because of testicular torsion and was complicated by post op hematoma. Has been in [facility] since surgery. Denied any sexual activity. He was managed for the following: Scrotal pain and swelling Concern for scrotal infection of hematoma/abscess History of left orchiectomy for testicular torsion Reviewed CT abd/P and Scrotal USS from admission Had bedside drainage of hematoma/abscess on 03/06/[address] Padron Currently on IV zosyn and doxy WOCN on board, pt will need wound care on dc. Scrotal cx non conclusive. d/w ID 03/11: zosyn while inpatient and cipro 500 mg bid + Augmentin 875 mg bid to complete 2 weeks antibiotic therapy s/p bedside debridement on 03/06/2024. Pain controlled Will need urology follow up outpatient Hypertension: Continue home amlodipine Poorly controlled Diabetes mellitus: HbA1c is 10.4 (Patient reported last one was about 14 or so) He stated his insulin glargine was recently increased few days ago to 25U BID He stated that the facility can only do the ISS twice due to staffing. Continue insulin therapy May consider change in insulin regime to 70/30, and close f/u w/ provider for ongoing diabetes care. Pt states he didn't tolerate metformin in the past. Hyperlipidemia: On statin History of seizures: On Lamictal DVT prophylaxis: Hep sq Full code Patient was [facility]. [facility] is being [facility] to [facility] with following instruction at the point of discharge: Follow-up with your primary care physician within a week time and likely you will need labs CBC/CMP/magnesium/phosphorus. You were evaluated for scrotal infection with hematoma/abscess, urology did bedside drainage of hematoma/abscess on 03/06/2024. You will need 2 weeks worth of antibiotics after 03/06, you will be discharged on oral antibiotics to complete the course. Follow-up with urology in 1 to 2 weeks time upon discharge. Because of your poorly controlled diabetes, you will be discharged on Novolin 70/30 insulin BID as you said [facility] is not able to do sliding scale insulin. You will need ongoing management of your diabetes with your primary care provider. Repeat test (A1c) in 3 months. Take your medications as prescribed. Please make sure that you are able to get your medications today by calling your pharmacy before you leave the hospital so that your treatment continuity is not broken. Home Health Attestation I certify that this patient is under my care and that I, or a physicians assistant service manager working with me, had a face to-face encounter that meets the home health [id number] encounter requirements with this patient. The encounter with the patient was in whole, or in part, for the following medical condition, which is the primary reason for home health care (list medi nixon condition): I certify that, based on my findings, the following services are medically necessary home health services: My clinical findings support the need for the above services because: Further, I certify that my clinical findings support that this patient is homebound (i.e. absences from home require considerable and taxing effort and are for medical reasons or amish services or infrequently or of short duration when for other reasons) because: Certification for Home Health Services: Based on the above findings, I certify that this patient is confined to the home and needs intermittent assisted care, physical therapy and/or speech ther apy or continues to need occupational therapy. The patient is under my care, and I have initiated the establishment of the plan of care. This patient will be followed by a physician who will periodically review the plan of care. Total Time Total Time Spent Total Time Spent (In Minutes): 45 Discharge Plan Discharge Items [facility] Reason For Visit: TESTICULAR PAIN, ELEVATED BP Discharge Diagnosis: Scrotal pain and swelling Concern for scrotal infection of hematoma/abscess History of left orchiectomy for testicular torsion Poorly controlled Diabetes mellitus Condition on Discharge: Good Activity: Resume your previous activity Non-emergency contact: Primary Care Provider Call non-emergency contact if: you have any medication questions and your symptoms worsen Follow-up/Referrals: Freddie BEST [Primary Care Provider] - Diet: Carb Consistent or DM2 Addtl Attending Provider Instructions: Follow-up with your primary care physician within a week time and likely you will need labs CBC/CMP/magnesium/phosphorus. You were evaluated for scrotal infection with hematoma/abscess, urology did bedside drainage of hematoma/abscess on 03/06/2024. You will need 2 weeks worth of antibiotics after 03/06, you will be discharged on oral antibiotics to complete the course. Follow-up with urology in 1 to 2 weeks time upon discharge. Because of your poorly controlled diabetes, you will be discharged on Novolin 70/30 insulin BID as you said [facility] is not able to do sliding scale insulin. You will need ongoing management of your diabetes with your primary care provider. Repeat test (A1c) in 3 months. Take your medications as prescribed. Please make sure that you are able to get your medications today by calling your pharmacy before you leave the hospital so that your treatment continuity is not broken. Pending Studies at Discharge: No Stand-Alone Forms: My [facility] Skilled Items Patient informed of condition?: Yes Discharge Level of Care: Other Communicable Disease: No Discharge Prognosis: Stable Lines: None Urinary Catheter: No Medications and DC Order Prescriptions: New oxycodone 5 mg Tablet 5 mg PO Q8H PRN (Reason: pain) Qty: 9 0RF Advanced Probiotic 625 mg (10 billion cell) Capsule 1 cap PO DAILY 14 Days Qty: 14 0RF polyethylene glycol 3350 [Miralax] 17 gram Powder In Packet 17 g PO DAILY PRN (Reason: laxative effect) Qty: 30 0RF ciprofloxacin HCl 500 mg tablet 500 mg PO BID 8 Days Qty: 16 0RF amoxicillin-pot clavulanate 875-125 mg tablet 1 tab PO BID 8 Days Qty: 16 0RF Novolin 70/30 U-100 Insulin 100 unit/mL (70-30) suspension 30 unit subcut BID Qty: 10 0RF Rx Instructions: Take 30 unit Novolin 70/30 twice a day, ideally before breakfast and dinner. Continued simethicone 180 mg Capsule 180 mg PO BID PRN (Reason: bloating) amlodipine 10 mg Tablet 10 mg PO DAILY lamotrigine 100 mg Tablet 100 mg PO BID atorvastatin 20 mg 20 mg PO DAILY Discontinued insulin glargine 100 unit/mL Solution 25 unit SUBCUT BID Novolin R Regular U100 Insulin 100 unit/mL Solution 1 sliding scale dose SUBCUT USEASDIRECTD ibuprofen 600 mg Tablet 600 mg PO Q8H PRN (Reason: Pain) Discharge Orders: Discharge Order (Routine); Ordered 03/12/24 Ordered By: Terri Mejias/Other Patient Handouts: A1C Admission Data Admit Date/Time: 03/05/24 05:09 Attending Provider: Terri Huerta Admit Provider: Israel Cox Primary Care Provider: Freddie BEST Other Providers: Israel Cox; Viet Padron
--- NOTE | 2024-03-14 19:50 | Coding Query ---
CODING QUERY To promote full compliance with coding requirements relating to patient care, provider participation is requested in all cases of physician coder uncertainty. Please assist us with the question(s) below: Coding Question(s): Pt 9 months s/p orchiectomy & hematoma adm this admission with hematoma/abscess. Please check below the phrase that describes the hematoma/abscess this current admission. Thank you! CODIE Razo [facility] Physician's Response(s): the hematoma/abscess is a postoperative complication the hematoma/abscess is not a postoperative complication ___x cannot clinically determine if the hematoma/abscess is a postoperative complication Principal Diagnosis: "that condition established after study, to be chiefly responsible for occasioning the admission of the patient to the hospital for care." Co-Existing Principal Diagnosis: "when two or more diagnoses equally meet the criteria for principal diagnosis as determined by the circumstances of admission, diagnostic work up, and/or therapy provided, and the Alphabetic Index, Tabular List, or another coding guideline does not provide sequencing direction, any one of the diagnoses may be sequenced first." "When the physician has documented what appears to be a current diagnosis in the body of the record, but has not included the diagnosis in the final diagnostic statement, the physician should be asked whether the diagnosis should be added." (Source Coding [facility] 2 QTR90. p3-4) BRENDA
== END 2024-03-12 15:16 | DRG 728 ==
LOC: ED 20:35 → SUATTDRO 03-05 05:09 → EDINP 03-05 05:09 → 4W 03-05 14:22